=== PATIENT | female | born 1950 | race Caucasian/White ===

== ENCOUNTER 2020-03-03 16:37 | Inpatient (IN) | payer MEDICARE ==
[2020-03-03] MEDS ORDERED: Morphine 4 MG/ML VIAL ONE ×2 (17:47→19:34)
[2020-03-03] MEDS ORDERED: Ondansetron PF 4 MG/2 ML Vial ONE (17:47)
--- NOTE | 2020-03-03 18:14 | RAD ---
Radiograph left femur 2 views: 03/03/2020 5:39 PM HISTORY: 70-year-old female with acute traumatic left lower extremity pain from fall FINDINGS: Total left knee replacement arthroplasty hardware is present. There is a very comminuted fracture of the distal femoral metaphysis which involves the metallic femo ral prosthesis. There is significant displacement, which includes approximately 50-75% bone width posterior displacement and approximately 50% bone width medial displacement, of major distal fragment s, including the prosthesis itself, relative to the femoral shaft. Nondisplaced linear fracture lucency extends to the distal shaft. No fracture of the midshaft, proximal shaft, intertrochanteric r egion, or femoral head. IMPRESSION: Acute, traumatic, comminuted and significantly displaced distal femoral metaphyseal fracture which in volves displacement of the metallic femoral prosthesis hardware for total knee replacement arthroplasty
--- NOTE | 2020-03-03 18:16 | RAD ---
RADIOGRAPH CHEST 1 VIEW: Supine DATE: 03/03/2020 HISTORY: 70-year-old female status post acute chest trauma from fall FINDINGS: There is no airspace density or pulmonary edema. The lateral costophrenic angles are sharp. Supine po sitioning makes this study insensitive for the detection of pneumothorax. IMPRESSION: No acute pulmonary findings.
[2020-03-03 18:31] LABS: #Basophils 0.1 thou/uL (0.0-0.2); #Eosinphils 0.2 thou/uL (0.0-0.7); #Lymphocytes 1.4 thou/uL (1.20-3.40); #Monocytes 0.7 thou/uL (0.11-0.59); #Neutrophils 17.2 thou/uL (1.40-6.50); %Basophils 0.4 % (0.0-1.0); %Eosinophils 0.8 % (0.0-10.0); %Monocytes 3.7 % (0.0-10.0); %Neutrophils 88.1 % (42.0-75.0); Hemoglobin 13.1 g/dL (12.0-16.0); Mean Corpuscular HGB CONC 30.8 g/dL (32.0-36.0); Mean Corpuscular Hemoglobin 24.4 pg (27.0-31.0); Mean Corpuscular Volume 79.1 fL (78.0-98.0); Mean Platelet Volume 9.2 fL (7.4-10.4); Platelet Count 480 thou/uL (130-400); RBC Distribution Width 17.7 % (11.5-14.5); White Blood Cell (WBC) Count 19.5 thou/uL (4.8-10.8)
[2020-03-03 19:04] LABS: ALT (SGPT) 9 U/L (8-55); AST (SGOT) 17 U/L (5-34); Albumin 3.8 g/dL (3.4-4.8); Alkaline Phosphatase 85 U/L (40-110); Anion Gap 16 mmol/L (10-20); BUN (Urea Nitrogen) 13 mg/dL (9.8-20.1); Bilirubin, Total 0.8 mg/dL (0.2-1.2); CK (CPK) 193 U/L (29-168); Calc. Creatinine Clearance 0 mL/min (70-130); Carbon Dioxide 24 mmol/L (23-31); Chloride 103 mmol/L (98-107); Estimated GFR-MDRD 49; Globulin 3.5 g/dL (2.4-3.5); Glucose 125 mg/dL (83-110); Magnesium 1.8 mg/dL (1.6-2.6); Potassium 3.7 mmol/L (3.5-5.1); Protein, Total 7.3 g/dL (6.0-8.3); Sodium 139 mmol/L (136-145)
[2020-03-03] MEDS ORDERED: POTASSIUM CHLORIDE IVPB SCH (20:15)
[2020-03-03] MEDS ORDERED: SODIUM CHLORIDE 0.9% IVPB SCH (20:15)
[2020-03-03] MEDS ORDERED: MAGNESIUM SULFATE IVPB SCH (20:15)
[2020-03-03] MEDS ORDERED: Dextrose 5% in Water 1,000 ML IV PRN (20:38)
[2020-03-03] MEDS ORDERED: Ondansetron ODT 4 MG TAB PO PRN (20:38)
[2020-03-03] MEDS ORDERED: Dextrose 50% Abboject 50 ML SYRINGE SLOW IVP PRN (20:38)
[2020-03-03] MEDS ORDERED: Morphine 2 MG/ML VIAL SLOW IVP PRN (20:38)
[2020-03-03] MEDS ORDERED: Cyclobenzaprine 10 MG TAB PO PRN (20:48)
[2020-03-03] MEDS ORDERED: traMADol HCl 50 MG TAB PO PRN (20:48)
[2020-03-03] MEDS ORDERED: Metoprolol Tartrate 5 MG/5 ML VIAL IVP PRN (20:50)
[2020-03-03] MEDS ORDERED: hydrALAZINE 20 MG/ML VIAL SLOW IVP PRN (20:50)
--- NOTE | 2020-03-03 21:39 | RAD ---
2 views of the left knee: 03/03/2020 COMPARISON: None HISTORY: Injury, trauma, pain FINDINGS: There is a markedly comminuted distal left femur fracture extending into the femoral compon ent of a left total knee arthroplasty. The distal fracture fragment demonstrates lateral angulation and medial displacement. No evidence for dislocation IMPRESSION: Markedly comminuted displaced and angulated distal left femur fracture extending into the left femoral component. Orthopedic consultation advised.
[2020-03-04] MEDS: Ketorolac Tromethamine 30 MG/ML VIAL IVP SCH ×4 (00:18→19:06)
[2020-03-04] MEDS: Famotidine 20 MG TAB PO SCH ×3 (00:18→20:40)
[2020-03-04] MEDS: Acetaminophen 500 MG TAB PO SCH ×5 (00:19→20:41)
[2020-03-04] MEDS: Senokot S 8.6-50 MG TAB PO SCH ×3 (00:19→20:42)
[2020-03-04] MEDS: traMADol HCl 50 MG TAB PO SCH ×5 (00:19→20:41)
[2020-03-04] MEDS: Ondansetron PF 4 MG/2 ML Vial IVP PRN (00:20)
[2020-03-04 00:34] VITALS: BMI 35.9
[2020-03-04] MEDS: Lactated Ringer's 1,000 ML IV SCH ×2 (02:13→13:58)
--- NOTE | 2020-03-04 02:13 | HP ---
TRAUMA ACTIVATION: Not applicable. HISTORY OF PRESENT ILLNESS: This is a 70-year-old female, who presented to [facility] via EMS status post fall. Per patient, she was walking around in her house when she tripped and fell over a vacuum cord. Patient reports landing on her knees. There was no head trauma. There was no loss of consciousness. Patient was seen and evaluated in the emergency room and found to have a left periprosthetic distal femur fracture. Orthopedic Surgery was notified and Trauma Service is asked to admit. Incidentally, patient was found to be in atrial fibrillation which she did not have a history of. Upon my evaluation, the patient reports pain is tolerable. She does endorse a 2-year history of unexplained cough, which has been treated one time via antibiotics with no resolution or change in symptoms. Cough is described as consistent and productive with thick white sputum. She also endorses shortness of breath at rest and dyspnea on exertion. These symptoms resolve with deep breathing exercises. Denies chest pain, fevers, chills, nausea, vomiting, palpitations, orthopnea, PND, or lower extremity edema. ALLERGIES: PATIENT DENIES. PAST MEDICAL HISTORY: Chronic illnesses include hypothyroidism, hypertension, and GERD. HOME MEDICATIONS: Include 1. Synthroid. 2. Hydrochlorothiazide. 3. Famotidine p.r.n. SURGICAL HISTORY: Bilateral knee replacement, two gastroplasties, appendectomy, thyroidectomy, hernia repair, and LASIK. SOCIAL HISTORY: Patient is , [place]. Endorses very rare alcohol use. She is a never smoker. Denies illicit drug use. FAMILY HISTORY: Noncontributory. REVIEW OF SYSTEMS: Remainder of a 10-point review of systems was performed and negative, except as indicated in HPI. PHYSICAL EXAMINATION: VITAL SIGNS: On evaluation include heart rate 98, blood pressure 156/93, respiratory rate of 18, O2 saturation of 98% on room air, and temperature 98.5. GENERAL: Elderly-appearing female, in no acute distress, resting on stretcher. HEENT: Head is normocephalic and atraumatic. Eyes, pupils are PERRL. Extraocular movements are intact. NECK: Supple. Trachea is midline. There is no midline tenderness to palpation. CHEST: Atraumatic. Nontender to palpation. Normal work of breathing. Symmetric rise. LUNGS: Clear to auscultation bilaterally. CARDIOVASCULAR: Irregularly irregular. No obvious murmurs, rubs, or gallops. No lower extremity edema. EXTREMITIES: Appear well perfused. ABDOMEN: Soft, nontender, and nondistended. MUSCULOSKELETAL: Moves all extremities. Bilateral upper extremities within normal limits. Right lower extremity within normal limits. Left lower extremity in knee immobilizer with obvious swelling and range of motion and strength limited secondary to pain. NEUROLOGIC: GCS is 15. No focal deficit is noted. LABORATORY FINDINGS: WBC 19.5, hemoglobin 13.1, hematocrit 42.7, and platelet count 480. Sodium 139, potassium 3.7, chloride 103, carbon dioxide 24, BUN 13, creatinine 1.10, and glucose 125. AST and ALT within normal limits. Magnesium 1.8. Troponin is less than 0.010. CK 193. TSH was 3.4997. EKG, atrial fibrillation, rapid ventricular rate. RADIOGRAPHIC FINDINGS: X-ray of the chest was negative for acute cardiopulmonary process. Femur x-ray demonstrated distal periprosthetic femur fracture. X-ray of the knee demonstrated the same. ASSESSMENT: 1. Status post mechanical fall. 2. Acute traumatic pain. 3. Left distal periprosthetic femur fracture. 4. Atrial fibrillation with rapid ventricular response, new diagnosis. 5. History of hypertension. 6. History of hypothyroidism. PLAN: Admit to Trauma Services. Admit patient to telemetry for further monitoring. In regard to her atrial fibrillation, the rate appears to be relatively well controlled with heart rate consistently dropping below 100 and only occasionally rising over 100 with exertion or movement. P.r.n. beta-epifanio. Cardiology consult. Replete abnormal electrolytes. Echocardiogram for further evaluation. Because the patient has been in AFib for unknown duration, we will not prescribe antiarrhythmics at this time. Orthopedic Surgery has seen and evaluated the patient. They planned for operative intervention once cleared by Cardiology. Patient should be n.p.o. after midnight. Pain management with p.o. and IV analgesics. Postoperative PT and OT. Supportive care as needed. Plan for admission was discussed with the patient at bedside and all questions were answered prior to this dictation. Trauma attending has been notified of admission. Job ID: [id number]
[2020-03-04 03:13] LABS: SARS-CoV-2 MS2 Positive; SARS-CoV-2 N Gene Negative; SARS-CoV-2 S Gene Negative; SARS-CoV-2 by NAA Not Detected (NotDetected); SARS-CoV-2 orf1ab Negative
[2020-03-04 05:12] LABS: #Eosinphils 0.1 thou/uL (0.0-0.7); #Monocytes 0.7 thou/uL (0.11-0.59); #Neutrophils 8.9 thou/uL (1.40-6.50); %Basophils 0.3 % (0.0-1.0); %Eosinophils 1.1 % (0.0-10.0); %Lymphocytes 17.3 % (21.0-51.0); %Monocytes 6.1 % (0.0-10.0); %Neutrophils 75.2 % (42.0-75.0); Hemoglobin 10.7 g/dL (12.0-16.0); Mean Corpuscular HGB CONC 30.6 g/dL (32.0-36.0); Mean Corpuscular Hemoglobin 24.2 pg (27.0-31.0); Mean Corpuscular Volume 79.1 fL (78.0-98.0); Mean Platelet Volume 9.3 fL (7.4-10.4); Platelet Count 428 thou/uL (130-400); RBC Distribution Width 17.7 % (11.5-14.5); Red Blood Cell (RBC) Count 4.42 mill/uL (4.20-5.40); White Blood Cell (WBC) Count 11.8 thou/uL (4.8-10.8)
[2020-03-04 05:26] LABS: Phosphorus 4.4 mg/dL (2.3-4.7)
[2020-03-04 05:38] LABS: Anion Gap 13 mmol/L (10-20); BUN (Urea Nitrogen) 14 mg/dL (9.8-20.1); Calc. Creatinine Clearance 84 mL/min (70-130); Calcium 8.4 mg/dL (7.8-10.44); Carbon Dioxide 24 mmol/L (23-31); Chloride 105 mmol/L (98-107); Estimated GFR-MDRD 55; Glucose 123 mg/dL (83-110); Magnesium 2.5 mg/dL (1.6-2.6); Potassium 4.3 mmol/L (3.5-5.1); Sodium 138 mmol/L (136-145)
--- NOTE | 2020-03-04 08:35 | CON ---
DATE OF CONSULTATION: 03/04/2020 CHIEF COMPLAINT: Leg pain. HISTORY OF PRESENT ILLNESS: Ms. Parra is a 70-year-old female, who has fallen and injured her left leg. She was at home yesterday when she lost her balance. She has a history of knee arthroplasty. She reports falling periodically, but has never fractured her bone before. This time, she could not get up. She had severe pain. She required EMS to transfer her to the hospital. She was also found to be in atrial fibrillation. Upon arrival to the emergency department, she was found to have a distal femur fracture, periprosthetic. She has been admitted to the telemetry unit. She is undergoing workup for her atrial fibrillation. She is in a knee immobilizer at this point. PAST MEDICAL HISTORY: Includes hypothyroidism, hypertension, GERD, and new onset atrial fibrillation. MEDICATIONS: 1. Synthroid. 2. Hydrochlorothiazide. 3. Famotidine. SURGICAL HISTORY: Bilateral total knee arthroplasties, previous appendectomy, thyroidectomy, hernia repair, LASIK surgery, and gastroplasty. SOCIAL HISTORY: The patient lives alone. She denies tobacco, alcohol, or drug use. FAMILY MEDICAL HISTORY: Noncontributory. REVIEW OF SYSTEMS: Positive for left leg pain. Otherwise, negative 10-point review of systems. IMAGES: Left femur x-rays demonstrate a periprosthetic distal femur fracture. There is severely osteoporotic bone. Total knee arthroplasty appears to be intact. There is approximately 1 to 2 cm of distal bone attached to the knee arthroplasty. There is a high degree of comminution. PHYSICAL EXAMINATION: VITAL SIGNS: Temperature is 97.6, pulse is 80, respiratory rate is 16, oxygen saturation 98%, blood pressure is 113/66. GENERAL: She is alert and oriented, in no apparent distress. RESPIRATORY: Breathing comfortably. HEENT: Normocephalic and atraumatic. MUSCULOSKELETAL: The patient's left lower extremity is in a knee immobilizer. She does have some swelling and ecchymosis about her knee. Otherwise, skin is intact. She is able to flex and extend the foot and ankle. She has a palpable dorsalis pedis pulse. IMPRESSION: Left distal femur fracture, periprosthetic in a patient with new onset atrial fibrillation. PLAN: The patient will need to go to the operating room. I will take her for open reduction and internal fixation of the left femur when she is cleared from a cardiac standpoint. She is awaiting an echocardiogram as well as Cardiac consultation. Hopefully, we can proceed with surgery today to get her femur stabilized and allow her to begin her recovery. She will have pain control. She will be n.p.o. for now. She will have DVT prophylaxis. We will continue to follow closely. Job ID: [id number]
[2020-03-04] MEDS ORDERED: FLU VACC QS2020-21(65YR UP)/PF 240 MCG/0.7 ML SYRINGE IM ONE (09:00)
[2020-03-04] MEDS ORDERED: Lidocaine 1% PF 5 ML VIAL ONE (09:59)
[2020-03-04] MEDS ORDERED: Metoclopramide HCl 10 MG/2 ML VIAL ONE (09:59)
[2020-03-04] MEDS ORDERED: Ketorolac Tromethamine 30 MG/ML VIAL ONE (09:59)
[2020-03-04] MEDS ORDERED: Dexamethasone 20 MG/5 ML VIAL ONE (09:59)
[2020-03-04] MEDS ORDERED: Ondansetron PF 4 MG/2 ML Vial ONE ×2 (09:59→16:52)
[2020-03-04] MEDS ORDERED: PROPOFOL 200 MG/20 ML VIAL ONE (09:59)
[2020-03-04] MEDS: Polyethylene Glycol 3350 17 GM Packet PO SCH (10:25)
--- NOTE | 2020-03-04 12:05 | CON ---
DATE OF CONSULTATION: HISTORY: Elo is a 70-year-old white female with bilateral knee replacements, who tripped over a vacuum hand rug cleaner cord at home and has sustained a left distal periprosthetic femur fracture. She was found to be in atrial fibrillation, which is a new finding for her. She is not on any rate-controlling drugs, but her rate has not been documented to be excessively fast here. She does state that she has noticed over the last several months (although maybe it is years) that she has dyspnea on exertion with doing housework or walking around the house. She denies ever having any palpitations. She denies any chest, arm, neck, or jaw discomfort. If she sits and rests, the dyspnea will resolve in several minutes. She denies any PND, orthopnea, or leg edema. PAST MEDICAL HISTORY: Hypertension, hypothyroidism, GERD. MEDICATIONS: 1. Hydrochlorothiazide 25 daily. 2. Prevacid 30 p.r.n. 3. Levothyroxine 175 mcg daily. ALLERGIES: NONE. OPERATIONS: Bilateral knee replacements, 2 gastroplasties, appendectomy, hernia repair, LASIK. She also had Graves disease many years ago and underwent I-131 ablation. SOCIAL HISTORY: She does not smoke. She rarely drinks alcohol. FAMILY HISTORY: Mother and father had myocardial infarctions. REVIEW OF SYSTEMS: A 10-point review of systems is otherwise unremarkable. PHYSICAL EXAMINATION: VITAL SIGNS: Blood pressure 113/66, pulse of 80 and irregularly irregular. HEENT: PERRL. NECK: Supple. CHEST: Clear. CARDIAC: S1 and S2 normal without any S3, S4, or murmurs. Carotid upstrokes normal without bruits. ABDOMEN: Normal bowel sounds without tenderness or organomegaly. Abdomen is obese. EXTREMITIES: Reveal no clubbing, cyanosis, or edema. NEUROLOGIC: Grossly intact. LABORATORY DATA: EKG revealed atrial fibrillation with rate of 95 per minute and poor R wave progression, possible septal infarction. Echocardiogram revealed ejection fraction of 35% to 40% with moderate left atrial enlargement, jrqiczzj-rj-wppwqy mitral regurgitation, aortic valvular sclerosis, moderate aortic regurgitation, xzhl-yi-pojaijfy tricuspid regurgitation, mild pulmonic regurgitation. Sodium 138, potassium 4.3, chloride 105, carbon dioxide 24, BUN 14, creatinine 0.99. Troponin I less than 0.010. TSH is normal. Hemoglobin was 13.1 on admission, but has dropped to 10.7; hematocrit 35.0; white count 11,800; platelets 428,000. COVID negative. IMPRESSION: 1. Left distal femur fracture after a fall. She states that she does not have falls except for this one. 2. Atrial fibrillation of uncertain duration. 3. Moderate left ventricular dysfunction with ejection fraction of 35% to 40%. 4. Etgfrijl-mm-zzjnjj mitral regurgitation. 5. Exertional dyspnea. 6. Hypertension. 7. Hypothyroidism. 8. Obesity. PLAN: Ms. Parra is at moderate cardiac risk with left ventricular dysfunction. However, her distal femur fracture needs to be repaired and I feel it will be prudent to proceed on. Her volume status will need to be watched very closely. Also, if she develops rapid ventricular response, she may need to be treated with intravenous Cardizem. I did discuss with her eventuality of the need for anticoagulation for stroke prophylaxis and medication such as Amiodarone and ultimate consideration of cardioversion. However, these are issues that will need to be pursued in the future and not now. Job ID: [id number] MANDO
[2020-03-04] MEDS ORDERED: Fentanyl 100 MCG/2 ML VIAL ONE ×3 (14:17→16:24)
[2020-03-04] MEDS ORDERED: CEFAZOLIN 2 GM in Premix Bag 1 BAG IVPB SCH (15:00)
[2020-03-04] MEDS ORDERED: Ondansetron HCl/PF 4 MG/2 ML Vial IVP PRN (15:54)
[2020-03-04] MEDS ORDERED: Promethazine HCl 25 MG/ML VIAL SLOW IVP PRN (15:54)
[2020-03-04] MEDS ORDERED: Promethazine HCl 25 MG/ML VIAL IM PRN (15:54)
--- NOTE | 2020-03-04 18:55 | RAD ---
Intraoperative imaging of the left femur: 03/04/2020 HISTORY: Injury, trauma, pain FINDINGS: There is a knee arthroplasty. Previously noted comminuted fracture of the distal femur has been treated with a lateral screw and plate fixation. There is anatomic alignment at the fracture site. IMPRESSION: ORIF of the distal left femur as above.
--- NOTE | 2020-03-04 19:00 | PRG ---
DATE OF SERVICE: 03/04/2020 SUBJECTIVE: The patient is currently on the telemetry unit. She was admitted status post ground-level fall when she sustained a periprosthetic distal femur fracture. She was awaiting surgery, but due to her new-onset atrial fibrillation, she required cardiac clearance. Dr. White evaluated her this morning and gave clearance for her surgery and we will continue treatment of her new onset of atrial fibrillation. She has been non-tachycardic since her admission. The current plans are for her to undergo surgery today with Dr. aDly. PHYSICAL EXAMINATION: VITAL SIGNS: Temperature is 97.6, heart rate 80, blood pressure 113/66, respirations 16, and oxygen saturation 98% on room air. GENERAL: The patient is resting comfortably in bed. She is awake, alert, conversant, and appropriate. [place] Coma Scale is 15. HEENT: Unremarkable. LUNGS: Clear to auscultation with good inspiratory and expiratory effort. HEART: Irregularly irregular consistent with her atrial fibrillation. She is not tachycardic. EXTREMITIES: Neurovascularly intact with tenderness to palpation to her left knee consistent with her fracture. LABORATORY FINDINGS: White blood cell count 11.8, hemoglobin 10.7, hematocrit 35.0, platelets 428. Sodium 138, potassium 4.3, chloride 105, CO2 of 24, BUN 14, creatinine 0.99, glucose 123, magnesium 2.5, phosphorus 4.4. There are no radiographs to review this morning. ASSESSMENT AND PLAN: 1. Status post ground-level fall. 2. Left distal periprosthetic femur fracture. 3. Acute pain secondary to above. 4. New-onset atrial fibrillation. 5. History of hypertension, hypothyroidism. Plan will be to have the patient begin physical and occupational therapy after surgery, discuss placement and await final treatment plan from Cardiology regarding her atrial fibrillation. The patient was evaluated this morning with Dr. Krueger during rounds. Job ID: [id number]
--- NOTE | 2020-03-04 19:26 | OP ---
DATE OF PROCEDURE: 03/04/2020 OPERATION: Open reduction and internal fixation of left distal femur fracture. PREOPERATIVE DIAGNOSIS: Left comminuted and displaced distal femur fracture. POSTOPERATIVE DIAGNOSIS: Left comminuted and displaced distal femur fracture. COMPLICATIONS: None. ESTIMATED BLOOD LOSS: 150 mL. IMPLANTS: Synthes distal femoral locking plate, size 14-hole. INDICATIONS: Ms. Parra is a 70-year-old female, who has fallen and fractured her distal femur. She has a periprosthetic fracture near the total knee arthroplasty. She has been indicated now for open reduction and internal fixation to restore anatomic alignment and promote healing. Goal of surgery is to prevent prolonged bedrest and allow pain control. Risks have been reviewed. She has elected to proceed with the operation. DESCRIPTION OF PROCEDURE: Ms. Parra was identified in the preoperative holding area. The correct extremity was marked. She was carried to the operating room. She was positioned supine. General anesthesia was induced. A multidisciplinary time-out was performed. The left lower extremity was prepped and draped in sterile fashion. We began the procedure with a lateral approach to the distal femur. We dissected down through the subcutaneous tissues to the fascia, which was opened. We exposed the distal femur with the comminuted fracture. We pulled the length on the bone and reduced the bone back into its anatomic position. At this point, we placed multiple K-wires. We then placed a 14-hole plate from distal to proximal. We slid the plate along the cortex of the bone. We then placed a proximal screw followed by distal locking screws. At this point, we placed multiple screws under intraoperative guidance. We continuously evaluated the fracture and hardware placement with intraoperative x-ray. Once we had a full construct with all screws placed, we took final images. We took images in the lateral view as well. We thoroughly irrigated with copious lavage. We then closed in layers. A sterile dressing was applied. The patient was taken to the recovery room in good condition at this point without complication. The dental assistant teacher surgeon was responsible for positioning the patient, preparing the injured extremity, applying the tourniquet, and assisting in preparation for surgery. The dental assistant teacher was instrumental in reducing the injured limb by applying traction and reduction maneuvers as well as holding retractors and reduction tools. The dental assistant teacher also was instrumental in assisting in exposure throughout the operation using appropriate retractors. The dental assistant teacher participated in closure of the operative site as well as dressing application and splint application. Job ID: [id number]
[2020-03-04] MEDS: Ibuprofen 600 MG TAB PO SCH (20:40)
[2020-03-04] MEDS: CEFAZOLIN 2 GM in Premix Bag 1 BAG IVPB SCH (20:43)
[2020-03-05] MEDS: Lactated Ringer's 1,000 ML IV SCH ×2 (02:13→15:41)
[2020-03-05 05:21] LABS: Cardiac Risk 2.7 (Less than 4.5)
[2020-03-05] MEDS: CEFAZOLIN 2 GM in Premix Bag 1 BAG IVPB SCH (06:01)
[2020-03-05] MEDS: Ibuprofen 600 MG TAB PO SCH ×3 (06:02→21:50)
[2020-03-05] MEDS: Acetaminophen 500 MG TAB PO SCH ×4 (06:36→20:31)
[2020-03-05] MEDS: traMADol HCl 50 MG TAB PO SCH ×4 (06:36→20:32)
[2020-03-05] MEDS: Polyethylene Glycol 3350 17 GM Packet PO SCH (08:27)
[2020-03-05] MEDS: Senokot S 8.6-50 MG TAB PO SCH ×2 (08:27→20:30)
[2020-03-05] MEDS: Famotidine 20 MG TAB PO SCH ×2 (08:27→20:30)
[2020-03-05] MEDS: Carvedilol 3.125 MG TAB PO SCH (17:17)
--- NOTE | 2020-03-05 22:41 | PRG ---
DATE OF SERVICE: SUBJECTIVE: Patient is currently on the telemetry floor. She was admitted status post ground level fall, in which she sustained a left comminuted distal femur fracture. She has undergone open reduction internal fixation. She is postop day 1 from that. She tolerated that procedure well. She began working with Physical and Occupational Therapy today. Regarding her atrial fibrillation, she remains in atrial fibrillation. She is currently rate controlled and Dr. White is making adjustments to her cardiac medications and recommendations for anticoagulation therapy. She is tolerating a diet. Her pain is controlled. PHYSICAL EXAMINATION: VITAL SIGNS: Temperature is 98.8, heart rate 92, blood pressure 118/58, respirations 16, and oxygen saturation 98% on room air. GENERAL: The patient is resting comfortably in bed. She is awake, alert, conversant, and appropriate. [place] Coma Scale is 15. HEENT: Unremarkable. LUNGS: Clear to auscultation bilaterally. HEART: Irregularly irregular consistent with her atrial fibrillation. ABDOMEN: Soft and nondistended with active bowel sounds. EXTREMITIES: Neurovascularly intact x4. LABORATORY FINDINGS: BNP 300. IMAGING: There are no radiographs reviewed this morning. ASSESSMENT: 1. Status post ground level fall. 2. Status post open reduction internal fixation of left distal periprosthetic femur fracture. 3. New onset atrial fibrillation, currently rate controlled. 4. History of hypertension and hypothyroidism. PLAN: Will be to continue encouraging physical and occupational therapy, begin working on placement and when cleared from cardiology standpoint to leave the hospital, we will transfer to [facility] facility versus rehab. At the time of dictation, Case Management is working on getting the patient placed closer to her daughter's home and her place of work at [employer]. We will continue working on this. Patient reports that this is a swing bed facility so this may facilitate her transfer. Job ID: [id number]
[2020-03-06] MEDS: traMADol HCl 50 MG TAB PO SCH ×4 (04:20→22:05)
[2020-03-06] MEDS: Acetaminophen 500 MG TAB PO SCH ×4 (04:21→22:00)
[2020-03-06 04:35] LABS: #Basophils 0.1 thou/uL (0.0-0.2); #Eosinphils 0.3 thou/uL (0.0-0.7); #Lymphocytes 3.7 thou/uL (1.20-3.40); #Monocytes 0.9 thou/uL (0.11-0.59); #Neutrophils 8.3 thou/uL (1.40-6.50); %Basophils 0.8 % (0.0-1.0); %Eosinophils 2.1 % (0.0-10.0); %Lymphocytes 27.7 % (21.0-51.0); %Monocytes 6.7 % (0.0-10.0); %Neutrophils 62.8 % (42.0-75.0); Hemoglobin 8.8 g/dL (12.0-16.0); Mean Corpuscular HGB CONC 31.1 g/dL (32.0-36.0); Mean Corpuscular Hemoglobin 24.5 pg (27.0-31.0); Mean Corpuscular Volume 78.9 fL (78.0-98.0); Mean Platelet Volume 9.3 fL (7.4-10.4); Platelet Count 381 thou/uL (130-400); RBC Distribution Width 17.6 % (11.5-14.5); White Blood Cell (WBC) Count 13.2 thou/uL (4.8-10.8)
[2020-03-06 05:03] LABS: Anion Gap 12 mmol/L (10-20); BUN (Urea Nitrogen) 21 mg/dL (9.8-20.1); Calc. Creatinine Clearance 64 mL/min (70-130); Calcium 8.3 mg/dL (7.8-10.44); Carbon Dioxide 25 mmol/L (23-31); Chloride 106 mmol/L (98-107); Estimated GFR-MDRD 40; Glucose 95 mg/dL (83-110); Magnesium 2.2 mg/dL (1.6-2.6); Phosphorus 3.3 mg/dL (2.3-4.7); Potassium 4.7 mmol/L (3.5-5.1); Sodium 138 mmol/L (136-145)
[2020-03-06] MEDS: Ibuprofen 600 MG TAB PO SCH ×3 (07:07→21:59)
[2020-03-06] MEDS: Levothyroxine 175 MCG TAB PO SCH (07:08)
[2020-03-06] MEDS: Famotidine 20 MG TAB PO SCH ×2 (07:48→21:59)
[2020-03-06] MEDS: Carvedilol 3.125 MG TAB PO SCH ×2 (07:48→17:05)
[2020-03-06] MEDS: Senokot S 8.6-50 MG TAB PO SCH ×2 (07:48→21:59)
[2020-03-06] MEDS: Polyethylene Glycol 3350 17 GM Packet PO SCH (07:49)
[2020-03-06] MEDS: Furosemide 20 MG TAB PO SCH (07:49)
[2020-03-06] MEDS ORDERED: Hydrochlorothiazide 25 MG TAB PO SCH (09:00)
--- NOTE | 2020-03-06 09:08 | PRG ---
DATE OF SERVICE: 03/06/2020 SUBJECTIVE: Elo is a 70-year-old female, postop day 2 from a left periprosthetic distal femur fracture. She is in good spirits and she was able to ambulate about 8 to 10 feet yesterday. Otherwise, she has no complaints of pain. She is very comfortable. OBJECTIVE: VITAL SIGNS: Temperature 97.7, pulse 78, respiratory rate 16, and blood pressure 117/66. GENERAL: She is alert and oriented to person, place, time, situation, responsive, and appropriate with examiner. Her incision is clean. There is no strike through and she is neurovascularly intact in the left lower extremity. No malrotation or shortening. LABORATORY DATA: Hemoglobin and hematocrit 8.8 and 28.4. BUN is little elevated at 21 with a creatinine of 1.30. IMPRESSION: 1. A 70-year-old female, postop day 2, left distal femur periprosthetic open reduction and internal fixation, doing relatively well. 2. Asymptomatic hemorrhagic anemia. 3. Mild renal insufficiency. PLAN: Continue to follow. Defer medical management to Trauma team. Otherwise, will take her dressing down in another 24 to 48 hours for incision check. I think she is planning on being transferred to a skilled facility near [place]. Job ID: [id number]
[2020-03-06 18:39] LABS: Hemoglobin 9.5 g/dL (12.0-16.0); Platelet Count 431 thou/uL (130-400)
--- NOTE | 2020-03-06 20:48 | PRG ---
DATE OF SERVICE: 03/06/2020 SUBJECTIVE: The patient is currently on the telemetry floor. She is status post ground level fall, in which she sustained a left distal femur periprosthetic fracture. She is postop day 2, status post open reduction and internal fixation of this fracture. She tolerated that well. She has been rate controlled on her in regard to her atrial fibrillation. She is tolerating a diet. Her pain is controlled. Case Management is working on placement for her. OBJECTIVE: VITAL SIGNS: Temperature 97.2, heart rate 84, blood pressure 111/64, respirations 18, oxygen saturation is 96% on room air. GENERAL: The patient is resting comfortably in bed. She is awake, alert, and appropriate. [place] Coma Scale is 15. HEENT: Unremarkable. LUNGS: Clear to auscultation. HEART: Irregularly irregular consistent with her atrial fibrillation. ABDOMEN: Nontender with active bowel sounds. EXTREMITIES: Neurovascularly intact x4. Postop dressing is clean, dry, and intact. Of note, this was changed this morning by Orthopedics. LABORATORY FINDINGS: White blood cell count 13.2, hemoglobin 8.8, hematocrit 28.4, platelets 381. Sodium 138, potassium 4.7, chloride 106, CO2 of 25, BUN 21, creatinine 1.30, glucose 95, phosphorus 3.3, magnesium 2.2. There are no radiographs reviewed this morning. ASSESSMENT: 1. Status post ground level fall, hospital day 3. 2. Postop day 2, status post left distal femur periprosthetic open reduction and internal fixation. 3. Acute blood loss anemia, stable. 4. Atrial fibrillation, currently rate controlled. PLAN: Will be to continue encouraging physical and occupational therapy. Await placement decision. Medical management by Cardiology and discuss with them timing for discharge and anticoagulation. The patient has been started on Eliquis. Plan will be to continue awaiting placement decision. Job ID: [id number]
[2020-03-07] MEDS: Acetaminophen 500 MG TAB PO SCH ×4 (03:46→21:17)
[2020-03-07] MEDS: traMADol HCl 50 MG TAB PO SCH ×4 (03:47→21:14)
[2020-03-07 04:47] LABS: #Basophils 0.1 thou/uL (0.0-0.2); #Eosinphils 0.7 thou/uL (0.0-0.7); #Lymphocytes 4.7 thou/uL (1.20-3.40); #Monocytes 0.8 thou/uL (0.11-0.59); #Neutrophils 5.9 thou/uL (1.40-6.50); %Eosinophils 5.8 % (0.0-10.0); %Lymphocytes 38.8 % (21.0-51.0); %Monocytes 6.6 % (0.0-10.0); %Neutrophils 47.8 % (42.0-75.0); Hemoglobin 9.9 g/dL (12.0-16.0); Mean Corpuscular HGB CONC 30.1 g/dL (32.0-36.0); Mean Corpuscular Hemoglobin 24.3 pg (27.0-31.0); Mean Corpuscular Volume 80.8 fL (78.0-98.0); Mean Platelet Volume 9.3 fL (7.4-10.4); Platelet Count 422 thou/uL (130-400); RBC Distribution Width 18.1 % (11.5-14.5); Red Blood Cell (RBC) Count 4.08 mill/uL (4.20-5.40); White Blood Cell (WBC) Count 12.2 thou/uL (4.8-10.8)
[2020-03-07 05:23] LABS: Anion Gap 15 mmol/L (10-20); BUN (Urea Nitrogen) 23 mg/dL (9.8-20.1); Calc. Creatinine Clearance 73 mL/min (70-130); Calcium 8.6 mg/dL (7.8-10.44); Carbon Dioxide 24 mmol/L (23-31); Chloride 103 mmol/L (98-107); Estimated GFR-MDRD 45; Glucose 79 mg/dL (83-110); Magnesium 2.2 mg/dL (1.6-2.6); Phosphorus 4.3 mg/dL (2.3-4.7); Potassium 4.6 mmol/L (3.5-5.1); Sodium 137 mmol/L (136-145)
[2020-03-07] MEDS: Ibuprofen 600 MG TAB PO SCH ×3 (05:39→21:16)
[2020-03-07] MEDS: Levothyroxine 175 MCG TAB PO SCH (05:41)
[2020-03-07] MEDS: Ascorbic Acid 500 mg Chewable Tablet PO SCH (09:13)
[2020-03-07] MEDS: Senokot S 8.6-50 MG TAB PO SCH ×2 (09:13→21:19)
[2020-03-07] MEDS: Carvedilol 3.125 MG TAB PO SCH ×2 (09:14→17:23)
[2020-03-07] MEDS: Furosemide 20 MG TAB PO SCH (09:14)
[2020-03-07] MEDS: Polyethylene Glycol 3350 17 GM Packet PO SCH (09:14)
[2020-03-07] MEDS: Ferrous Sulfate 325 MG TAB PO SCH ×2 (09:14→17:23)
[2020-03-07] MEDS: Famotidine 20 MG TAB PO SCH ×2 (09:19→21:18)
[2020-03-07] MEDS: Ondansetron PF 4 MG/2 ML Vial IVP PRN (11:04)
--- NOTE | 2020-03-07 17:24 | PDOC.CPN ---
- Subjective Date: 03/07/20 Time: 15:45 Interval history: No overnight events, patient remains in a-fib, had one episode of A-fib with RVR this morning, patient was vomiting at that time, only lasted a short period. Patient denies any SOB, palpitations, states her left leg pain is 0/10 today. - Review of Systems General: denies: fever/chills, weight/appetite/sleep changes, night sweats, fatigue Respiratory: denies: cough, congestion, shortness of breath, exercise intolerance Cardiovascular: denies: chest pain, palpitation, edema, paroxysmal nocturnal dyspnea, orthopnea Gastrointestinal: denies: nausea, vomiting (vomiting this morning, denies any more vomiting or nausea today.), diarrhea, constipation, abd pain, GI bleeding Musculoskeletal: denies: pain, tenderness, stiffness, swelling, arthritis/arthralgias Neurological: denies: numbness, syncope, seizure, weakness - Objective Allergies/Adverse Reactions: Allergies Allergy/AdvReac Type Severity Reaction Status Date / Time No Known Drug Allergies Allergy Verified 03/08/14 13:03 Visit Medications: Current Medications Acetaminophen (Acetaminophen 500 Mg Tab) 1,000 mg PO Q6H [facility] Last Admin: 03/07/20 15:58 Dose: 1,000 mg Documented by: Apixaban (Apixaban 5 Mg Tab) 5 mg PO BID [facility] Ascorbic Acid (Ascorbic Acid 500 Mg Chewable Tablet) 500 mg PO DAILY [facility] Last Admin: 03/07/20 09:13 Dose: 500 mg Documented by: Carvedilol (Carvedilol 3.125 Mg Tab) 3.125 mg PO BID-[facility] Last Admin: 03/07/20 09:14 Dose: 3.125 mg Documented by: Cyclobenzaprine HCl (Cyclobenzaprine 10 Mg Tab) 5 mg PO TID PRN PRN Reason: Muscle Spasm Dextrose/Water (Dextrose 50% Abboject 50 Ml Syringe) 25 gm SLOW IVP PRN PRN PRN Reason: Hypoglycemia Famotidine (Famotidine 20 Mg Tab) 20 mg PO BID [facility] Last Admin: 03/07/20 09:19 Dose: 20 mg Documented by: Ferrous Sulfate (Ferrous Sulfate 325 Mg Tab) 325 mg PO BID-[facility] Last Admin: 03/07/20 09:14 Dose: 325 mg Documented by: Furosemide (Furosemide 20 Mg Tab) 20 mg PO DAILY [facility] Last Admin: 03/07/20 09:14 Dose: 20 mg Documented by: Glucagon (Glucagon 1 Mg/Ml Vial) 1 mg IM PRN PRN PRN Reason: Hypoglycemia Hydralazine HCl (Hydralazine 20 Mg/Ml Vial) 10 mg SLOW IVP Q4H PRN PRN Reason: SBP >160 Dextrose/Water (D5w) 1,000 mls @ 0 mls/hr IV .Q0M PRN PRN Reason: Hypoglycemia Ibuprofen (Ibuprofen 600 Mg Tab) 600 mg PO Q8HR [facility] Last Admin: 03/07/20 15:53 Dose: 600 mg Documented by: Levothyroxine Sodium (Levothyroxine 175 Mcg Tab) 175 mcg PO 0600 [facility] Last Admin: 03/07/20 05:41 Dose: 175 mcg Documented by: Metoprolol Tartrate (Metoprolol Tartrate 5 Mg/5 Ml Vial) 5 mg IVP Q6H PRN PRN Reason: HR >120 Ondansetron HCl (Ondansetron Pf 4 Mg/2 Ml Vial) 4 mg IVP Q6H PRN PRN Reason: Nausea Last Admin: 03/07/20 11:04 Dose: 4 mg Documented by: Ondansetron HCl (Ondansetron Odt 4 Mg Tab) 4 mg PO Q6H PRN PRN Reason: Nausea/Vomiting Polyethylene Glycol (Polyethylene Glycol 3350 17 Gm Packet) 17 gm PO DAILY [facility] Last Admin: 03/07/20 09:14 Dose: 17 gm Documented by: Senna/Docusate Sodium (Senokot S 8.6-50 Mg Tab) 2 tab PO BID [facility] Last Admin: 03/07/20 09:13 Dose: 2 tab Documented by: Sodium Chloride (Flush - Normal Saline 10 Ml Syringe) 10 ml IVF PRN PRN PRN Reason: Saline Flush Last Admin: 03/07/20 11:05 Dose: 10 ml Documented by: Tramadol HCl (Tramadol Hcl 50 Mg Tab) 50 mg PO Q6H [facility] Last Admin: 03/07/20 15:53 Dose: 50 mg Documented by: Tramadol HCl (Tramadol Hcl 50 Mg Tab) 50 mg PO Q6H PRN PRN Reason: Breakthrough Pain Vital Signs & Weight: Vital Signs Temp Pulse Resp BP BP Pulse Ox 03/07/20 16:00 97.2 F L 87 16 124/82 124/82 03/07/20 12:00 97.2 F L 90 16 127/73 127/73 03/07/20 08:00 96.2 F L 69 18 123/62 98 03/07/20 07:45 98 Weight 237 lb 8 oz - Quality Measures Condition: Atrial Fibrillation/Flutter (hx or current) CV meds: Beta Salvador: Yes, Anticoagulant: Yes (starting Eliquis today ) - Physical Exam General: alert & oriented x3, appears well, no apparent distress HEENT: mucus membranes moist Neck: supple neck, midline trachea, no JVD/HJR Cardiac: irregularly regular Lungs: clear to auscultation, normal breath sounds, no wheeze, rales, rhonchi Neuro: grossly intact Abdomen: active bowel sounds, soft, non-tender Extremities: no cyanosis, no clubbing, no edema, 2+ Posterior Tibial, 2+ Dorsalis Pedus, other: (KRISTINA wrapand knee immobilizer to left leg, elevated on pillows) Skin: clear Musculoskeletal: normal range of motion, no pain - Labs Result Diagrams: 03/07/20 04:16 03/07/20 04:16 Troponin/CKMB Troponin I Less than 0.010 ng/mL (< 0.028) 03/03/20 18:16 - EKG Interpretation EKG Method: Telemetry EKG shows: atrial fibrillation - Assessment/Plan Assessment/Plan: 1. S/P left femur fracture, doing well after surgery, patient denies any pain in left leg today. 2. Atrial fibrillation of uncertain duration, patient has had 2 short episodes of A-fib with RVR today, BP is well controlled, we will increase her Coreg to 6.25 mg PO BID, will consider starting Amiodarone at a later time after being on OAC . At this time considering early cardioversion after RON to rule out GINA thrombus. 3. Moderate left ventricular dysfunction with EF 35-40%, will start patient on low dose Lisinopril 2.5 mg PO daily and check kidney function in A.M. 4. Moderate to severe mitral regurgitation, patient denies any SOB, SEBASTIAN, edema to BLE 5. Exertional dyspnea: patient was found to be in atrial fibrilation upon arrival to hospital, patient states her SEBASTIAN has gotten better during hospital stay 6. Hypothyroidism 7. Obesity Pt. seen and eval. by me. I agree with the A/P by the HOOP COILER. Chest clrear. Irreg/irreg. rhythm. Rate controlled. No edema. eviem
--- NOTE | 2020-03-07 19:53 | PRG ---
DATE OF SERVICE: 03/07/2020 SUBJECTIVE: The patient remains on the telemetry floor. She is status post ground level fall, in which she sustained a left distal femur periprosthetic fracture. She is postop day 3 from open reduction and internal fixation of this fracture. She remains in atrial fibrillation, but her rate controlled. She is tolerating a diet. Her pain is controlled. She has begun working with Physical Therapy and Case Management is working on placement at the [facility] in [place]. The patient is also being followed closely by Cardiology. Refer to their notes for further recommendations. PHYSICAL EXAMINATION: VITAL SIGNS: Temperature is 97.2, heart rate 91, blood pressure 127/73, respirations 16, and oxygen saturation 98% on room air. GENERAL: The patient is resting comfortably in bed. She is awake, alert, conversant, appropriate. [place] Coma Scale is 15. HEENT: Unremarkable. LUNGS: Clear to auscultation bilaterally with good inspiratory and expiratory effort. HEART: Irregularly irregular consistent with her atrial fibrillation. ABDOMEN: Soft and nontender with active bowel sounds. EXTREMITIES: Neurovascularly intact x4. LABORATORY FINDINGS: White blood cell count 12.2, hemoglobin 9.9, hematocrit 33.0, platelets 422. Sodium 137, potassium 4.6, chloride 103, CO2 of 24, BUN 23, creatinine 1.18, glucose 79, magnesium 2.2, and phosphorus 4.3. RADIOGRAPHS: There are no radiographs to review this morning. ASSESSMENT AND PLAN: 1. Status post ground level fall, hospital day 4. 2. Postop day 3, status post left distal femur periprosthetic fracture and open reduction and internal fixation of same. 3. Acute blood loss anemia, stable. 4. Atrial fibrillation, currently rate controlled. Plan will be to continue encouraging physical and occupational therapy. Recommendations by Cardiology, see their note for same. Continue working on placement. From a trauma/surgical standpoint, the patient is ready for transfer to rehab pending Cardiology recommendations. Job ID: [id number]
[2020-03-07] MEDS: Apixaban 5 MG TAB PO SCH (21:18)
[2020-03-08] MEDS: Acetaminophen 500 MG TAB PO SCH ×4 (03:00→21:09)
[2020-03-08] MEDS: traMADol HCl 50 MG TAB PO SCH ×4 (03:00→21:10)
[2020-03-08 05:01] LABS: #Basophils 0.1 thou/uL (0.0-0.2); #Eosinphils 0.9 thou/uL (0.0-0.7); #Lymphocytes 3.8 thou/uL (1.20-3.40); #Monocytes 0.7 thou/uL (0.11-0.59); #Neutrophils 5.9 thou/uL (1.40-6.50); %Basophils 0.6 % (0.0-1.0); %Eosinophils 7.8 % (0.0-10.0); %Lymphocytes 33.4 % (21.0-51.0); %Monocytes 6.3 % (0.0-10.0); %Neutrophils 51.9 % (42.0-75.0); Hemoglobin 9.4 g/dL (12.0-16.0); Mean Corpuscular HGB CONC 30.9 g/dL (32.0-36.0); Mean Corpuscular Hemoglobin 24.6 pg (27.0-31.0); Mean Corpuscular Volume 79.6 fL (78.0-98.0); Mean Platelet Volume 9.5 fL (7.4-10.4); Platelet Count 486 thou/uL (130-400); RBC Distribution Width 18.1 % (11.5-14.5); Red Blood Cell (RBC) Count 3.81 mill/uL (4.20-5.40); White Blood Cell (WBC) Count 11.3 thou/uL (4.8-10.8)
[2020-03-08 05:10] LABS: Anion Gap 14 mmol/L (10-20); BUN (Urea Nitrogen) 22 mg/dL (9.8-20.1); Calc. Creatinine Clearance 81 mL/min (70-130); Calcium 8.5 mg/dL (7.8-10.44); Carbon Dioxide 25 mmol/L (23-31); Chloride 102 mmol/L (98-107); Estimated GFR-MDRD 51; Glucose 75 mg/dL (83-110); Potassium 4.4 mmol/L (3.5-5.1); Sodium 137 mmol/L (136-145)
[2020-03-08] MEDS: Ibuprofen 600 MG TAB PO SCH ×3 (05:45→21:11)
[2020-03-08] MEDS: Levothyroxine 175 MCG TAB PO SCH (05:46)
[2020-03-08 06:58] LABS: Phosphorus 4.6 mg/dL (2.3-4.7)
[2020-03-08] MEDS: Furosemide 20 MG TAB PO SCH (08:42)
[2020-03-08] MEDS: Famotidine 20 MG TAB PO SCH ×2 (08:42→21:11)
[2020-03-08] MEDS: Ferrous Sulfate 325 MG TAB PO SCH ×2 (08:43→16:34)
[2020-03-08] MEDS: Carvedilol 6.25 MG TAB PO SCH ×2 (08:43→16:34)
[2020-03-08] MEDS: Apixaban 5 MG TAB PO SCH ×2 (08:43→21:12)
[2020-03-08] MEDS: Lisinopril 2.5 MG TAB PO SCH (08:43)
[2020-03-08] MEDS: Ascorbic Acid 500 mg Chewable Tablet PO SCH (08:43)
[2020-03-08] MEDS: Polyethylene Glycol 3350 17 GM Packet PO SCH (08:46)
[2020-03-08] MEDS: Senokot S 8.6-50 MG TAB PO SCH ×2 (08:46→21:12)
--- NOTE | 2020-03-08 14:38 | PDOC.CPN ---
- Subjective Date: 03/08/20 Time: 14:00 Interval history: patient doing well, no episodes of A-fib with RVR last night, she remains in a- fib, rate controlled at this time. She has no new complaints, she had some vomiting yesterday, but none today. Denies any nausea or abdominal pain. Denies any pain to her left leg. Denies and chest pain, shortness of breath, palpitations, dizziness. She did get up and walk a short distance with therapy this morning. - Review of Systems General: denies: fever/chills, weight/appetite/sleep changes, night sweats, fatigue Respiratory: denies: cough, congestion, shortness of breath, exercise in tolerance Cardiovascular: denies: chest pain, palpitation, edema, paroxysmal nocturnal dyspnea, orthopnea Gastrointestinal: denies: nausea, vomiting, diarrhea, constipation, abd pain, GI bleeding Musculoskeletal: denies: pain, tenderness, stiffness, swelling, arthritis/arthralgias Neurological: denies: numbness, syncope, seizure, weakness - Objective Allergies/Adverse Reactions: Allergies Allergy/AdvReac Type Severity Reaction Status Date / Time No Known Drug Allergies Allergy Verified 03/08/14 13:03 Visit Medications: Current Medications Acetaminophen (Acetaminophen 500 Mg Tab) 1,000 mg PO Q6H [facility] Last Admin: 03/08/20 08:45 Dose: 1,000 mg Documented by: Apixaban (Apixaban 5 Mg Tab) 5 mg PO BID [facility] Last Admin: 03/08/20 08:43 Dose: 5 mg Documented by: Ascorbic Acid (Ascorbic Acid 500 Mg Chewable Tablet) 500 mg PO DAILY [facility] Last Admin: 03/08/20 08:43 Dose: 500 mg Documented by: Carvedilol (Carvedilol 6.25 Mg Tab) 6.25 mg PO BID-[facility] Last Admin: 03/08/20 08:43 Dose: 6.25 mg Documented by: Cyclobenzaprine HCl (Cyclobenzaprine 10 Mg Tab) 5 mg PO TID PRN PRN Reason: Muscle Spasm Dextrose/Water (Dextrose 50% Abboject 50 Ml Syringe) 25 gm SLOW IVP PRN PRN PRN Reason: Hypoglycemia Famotidine (Famotidine 20 Mg Tab) 20 mg PO BID [facility] Last Admin: 03/08/20 08:42 Dose: 20 mg Documented by: Ferrous Sulfate (Ferrous Sulfate 325 Mg Tab) 325 mg PO BID-[facility] Last Admin: 03/08/20 08:43 Dose: 325 mg Documented by: Furosemide (Furosemide 20 Mg Tab) 20 mg PO DAILY [facility] Last Admin: 03/08/20 08:42 Dose: 20 mg Documented by: Glucagon (Glucagon 1 Mg/Ml Vial) 1 mg IM PRN PRN PRN Reason: Hypoglycemia Hydralazine HCl (Hydralazine 20 Mg/Ml Vial) 10 mg SLOW IVP Q4H PRN PRN Reason: SBP >160 Dextrose/Water (D5w) 1,000 mls @ 0 mls/hr IV .Q0M PRN PRN Reason: Hypoglycemia Ibuprofen (Ibuprofen 600 Mg Tab) 600 mg PO Q8HR [facility] Last Admin: 03/08/20 05:45 Dose: 600 mg Documented by: Levothyroxine Sodium (Levothyroxine 175 Mcg Tab) 175 mcg PO 0600 [facility] Last Admin: 03/08/20 05:46 Dose: 175 mcg Documented by: Lisinopril (Lisinopril 2.5 Mg Tab) 2.5 mg PO DAILY [facility] Last Admin: 03/08/20 08:43 Dose: 2.5 mg Documented by: Metoprolol Tartrate (Metoprolol Tartrate 5 Mg/5 Ml Vial) 5 mg IVP Q6H PRN PRN Reason: HR >120 Ondansetron HCl (Ondansetron Pf 4 Mg/2 Ml Vial) 4 mg IVP Q6H PRN PRN Reason: Nausea Last Admin: 03/07/20 11:04 Dose: 4 mg Documented by: Ondansetron HCl (Ondansetron Odt 4 Mg Tab) 4 mg PO Q6H PRN PRN Reason: Nausea/Vomiting Polyethylene Glycol (Polyethylene Glycol 3350 17 Gm Packet) 17 gm PO DAILY [facility] Last Admin: 03/08/20 08:46 Dose: Not Given Documented by: Senna/Docusate Sodium (Senokot S 8.6-50 Mg Tab) 2 tab PO BID [facility] Last Admin: 03/08/20 08:46 Dose: Not Given Documented by: Sodium Chloride (Flush - Normal Saline 10 Ml Syringe) 10 ml IVF PRN PRN PRN Reason: Saline Flush Last Admin: 03/07/20 11:05 Dose: 10 ml Documented by: Tramadol HCl (Tramadol Hcl 50 Mg Tab) 50 mg PO Q6H [facility] Last Admin: 03/08/20 08:46 Dose: Not Given Documented by: Tramadol HCl (Tramadol Hcl 50 Mg Tab) 50 mg PO Q6H PRN PRN Reason: Breakthrough Pain Vital Signs & Weight: Vital Signs Temp Pulse Pulse Pulse Resp BP BP 03/08/20 11:02 98.3 F 80 18 03/08/20 09:17 86 91 115/62 125/61 03/08/20 08:43 64 03/08/20 07:09 97.6 F 64 18 03/08/20 04:15 97.6 F 60 18 BP Pulse Ox 03/08/20 11:02 95/63 98 03/08/20 09:17 03/08/20 08:43 03/08/20 07:09 138/73 95 03/08/20 04:15 105/59 L 96 Weight 236 lb - Quality Measures Condition: Atrial Fibrillation/Flutter (hx or current) CV meds: Beta Salvador: Yes, Anticoagulant: Yes (starting Eliquis today ) - Physical Exam General: alert & oriented x3, appears well, no apparent distress HEENT: mucus membranes moist, normocephaly Neck: supple neck, no JVD/HJR, no bruit Cardiac: irregularly regular Lungs: clear to auscultation, normal breath sounds, normal exam, no wheeze, rales, rhonchi Neuro: grossly intact, motor function intact, sensory function intact Abdomen: active bowel sounds, soft, non-tender, no masses Extremities: no cyanosis, no clubbing, no edema, other: (left extremity with KRISTINA bandage and knee immobilizer, elevated on pillows. Wearing SCDS) Skin: clear Musculoskeletal: normal range of motion - Labs Result Diagrams: 03/08/20 04:40 03/08/20 04:40 Troponin/CKMB Troponin I Less than 0.010 ng/mL (< 0.028) 03/03/20 18:16 - EKG Interpretation EKG: WNL EKG shows: atrial fibrillation - Assessment/Plan Assessment/Plan: 1. S/P left femur fracture, doing well after surgery, patient denies any pain in left leg today. Walked with therapy today. Managed by trauma services. 2. Atrial fibrillation of uncertain duration, no episodes of RVR today, has maintained rate with increased dose of beta salvador yesterday, BP is well controlled, will consider starting Amiodarone at a later time after being on OAC . At this time considering early cardioversion after RON to rule out GINA thrombus. 3. Moderate left ventricular dysfunction with EF 35-40%, patient started on low dose Lisinopril yesterday, Creatinine slightly improved at 1.06 today. Will continue to monitor. 4. Moderate to severe mitral regurgitation, patient denies any SOB, SEBASTIAN, edema to BLE 5. Exertional dyspnea: patient was found to be in atrial fibrillation upon arrival to hospital, patient states her SEBASTIAN has gotten better during hospital stay, denies any SEBASTIAN today. 6. Hypothyroidism 7. Obesity Pt. seen and eval. by me. I agree with the A/P by the VIDEO GAMES STORYWRITER. She has no complaints and is awaiting placement for rehab. [email or web address]
[2020-03-09] MEDS: traMADol HCl 50 MG TAB PO SCH ×4 (03:04→22:11)
[2020-03-09] MEDS: Acetaminophen 500 MG TAB PO SCH ×4 (03:04→22:10)
[2020-03-09 04:38] LABS: #Basophils 0.1 thou/uL (0.0-0.2); #Lymphocytes 4.5 thou/uL (1.20-3.40); #Neutrophils 8.1 thou/uL (1.40-6.50); %Basophils 0.4 % (0.0-1.0); %Eosinophils 6.8 % (0.0-10.0); %Monocytes 6.7 % (0.0-10.0); %Neutrophils 55.1 % (42.0-75.0); Hemoglobin 10.6 g/dL (12.0-16.0); Mean Corpuscular HGB CONC 31.1 g/dL (32.0-36.0); Mean Corpuscular Hemoglobin 24.6 pg (27.0-31.0); Mean Corpuscular Volume 79.3 fL (78.0-98.0); Mean Platelet Volume 8.8 fL (7.4-10.4); Platelet Count 483 thou/uL (130-400); Red Blood Cell (RBC) Count 4.31 mill/uL (4.20-5.40); White Blood Cell (WBC) Count 14.6 thou/uL (4.8-10.8)
[2020-03-09 04:59] LABS: Anion Gap 14 mmol/L (10-20); BUN (Urea Nitrogen) 21 mg/dL (9.8-20.1); Calc. Creatinine Clearance 80 mL/min (70-130); Carbon Dioxide 26 mmol/L (23-31); Chloride 103 mmol/L (98-107); Estimated GFR-MDRD 50; Glucose 87 mg/dL (83-110); Phosphorus 4.2 mg/dL (2.3-4.7); Potassium 4.6 mmol/L (3.5-5.1); Sodium 138 mmol/L (136-145)
[2020-03-09] MEDS: Levothyroxine 175 MCG TAB PO SCH (05:59)
[2020-03-09] MEDS: Ibuprofen 600 MG TAB PO SCH ×3 (05:59→22:13)
[2020-03-09] MEDS: Carvedilol 6.25 MG TAB PO SCH ×2 (08:00→16:59)
[2020-03-09] MEDS: Ascorbic Acid 500 mg Chewable Tablet PO SCH (08:00)
[2020-03-09] MEDS: Ferrous Sulfate 325 MG TAB PO SCH ×2 (08:00→16:59)
[2020-03-09] MEDS: Furosemide 20 MG TAB PO SCH (08:00)
[2020-03-09] MEDS: Lisinopril 2.5 MG TAB PO SCH (08:00)
[2020-03-09] MEDS: Famotidine 20 MG TAB PO SCH ×2 (08:00→22:09)
[2020-03-09] MEDS: Polyethylene Glycol 3350 17 GM Packet PO SCH (08:01)
[2020-03-09] MEDS: Apixaban 5 MG TAB PO SCH ×2 (08:01→22:14)
[2020-03-09] MEDS: Senokot S 8.6-50 MG TAB PO SCH ×2 (08:01→22:12)
--- NOTE | 2020-03-09 20:26 | PRG ---
DATE OF SERVICE: 03/09/2020 SUBJECTIVE: The patient remained on the telemetry floor. She is status post a ground level fall, in which she sustained a left comminuted and displaced distal femur fracture. She has undergone open reduction and internal fixation of same. She remains in atrial fibrillation. She is currently rate controlled. She has been working with physical and occupational therapy and tolerating a diet. Her pain is controlled. PHYSICAL EXAMINATION: VITAL SIGNS: Temperature is 97.6, heart rate 78, blood pressure 101/57, respirations 18, oxygen saturation 98% on room air. GENERAL: The patient is resting comfortably in bed. She is awake, alert, conversant, appropriate. [place] Coma Scale is 15. HEENT: Unremarkable. LUNGS: Clear to auscultation with good inspiratory and expiratory effort. HEART: Irregularly irregular consistent with her atrial fibrillation. ABDOMEN: Soft, nondistended. EXTREMITIES: Neurovascularly intact x4. LABORATORY FINDINGS: White blood cell count 14.6, hemoglobin 10.6, hematocrit 34.2, platelets 43. Sodium 138, potassium 4.6, chloride 103, CO2 of 26, BUN 21, creatinine 1.07, glucose 87, magnesium 2.0, phosphorus 4.2. There are no radiographs reviewed this morning. ASSESSMENT: 1. Status post ground level fall, hospital day #6. 2. Postop day #5 status post left distal femur fracture open reduction and internal fixation. 3. Acute blood loss anemia, stable. 4. Atrial fibrillation, currently rate controlled. PLAN: Will be to continue encouraging physical and occupational therapy, supportive care. Medical recommendations per Cardiology and continue working towards placement. The patient was evaluated this morning with Dr. Krueger during rounds. Job ID: [id number]
[2020-03-10] MEDS: traMADol HCl 50 MG TAB PO SCH ×4 (03:30→20:50)
[2020-03-10] MEDS: Acetaminophen 500 MG TAB PO SCH ×4 (03:30→20:53)
[2020-03-10 04:48] LABS: #Basophils 0.1 thou/uL (0.0-0.2); #Eosinphils 0.9 thou/uL (0.0-0.7); #Lymphocytes 3.6 thou/uL (1.20-3.40); #Monocytes 0.8 thou/uL (0.11-0.59); #Neutrophils 6.4 thou/uL (1.40-6.50); %Basophils 0.9 % (0.0-1.0); %Eosinophils 7.8 % (0.0-10.0); %Lymphocytes 30.3 % (21.0-51.0); %Neutrophils 53.9 % (42.0-75.0); Hemoglobin 9.4 g/dL (12.0-16.0); Mean Corpuscular HGB CONC 30.9 g/dL (32.0-36.0); Mean Corpuscular Hemoglobin 24.3 pg (27.0-31.0); Mean Corpuscular Volume 78.7 fL (78.0-98.0); Mean Platelet Volume 8.8 fL (7.4-10.4); Platelet Count 549 thou/uL (130-400); RBC Distribution Width 18.4 % (11.5-14.5); Red Blood Cell (RBC) Count 3.88 mill/uL (4.20-5.40); White Blood Cell (WBC) Count 11.8 thou/uL (4.8-10.8)
[2020-03-10 05:13] LABS: Anion Gap 15 mmol/L (10-20); BUN (Urea Nitrogen) 21 mg/dL (9.8-20.1); Calc. Creatinine Clearance 78 mL/min (70-130); Calcium 8.3 mg/dL (7.8-10.44); Carbon Dioxide 27 mmol/L (23-31); Chloride 102 mmol/L (98-107); Estimated GFR-MDRD 50; Glucose 96 mg/dL (83-110); Potassium 3.9 mmol/L (3.5-5.1); Sodium 140 mmol/L (136-145)
[2020-03-10] MEDS: Levothyroxine 175 MCG TAB PO SCH (05:47)
[2020-03-10] MEDS: Ibuprofen 600 MG TAB PO SCH ×3 (05:47→21:00)
[2020-03-10] MEDS: Carvedilol 6.25 MG TAB PO SCH ×2 (08:03→16:52)
[2020-03-10] MEDS: Ferrous Sulfate 325 MG TAB PO SCH ×2 (08:03→16:52)
[2020-03-10] MEDS: Lisinopril 2.5 MG TAB PO SCH (08:03)
[2020-03-10] MEDS: Furosemide 20 MG TAB PO SCH (08:03)
[2020-03-10] MEDS: Ascorbic Acid 500 mg Chewable Tablet PO SCH (08:03)
[2020-03-10] MEDS: Apixaban 5 MG TAB PO SCH ×2 (08:03→20:53)
[2020-03-10] MEDS: Famotidine 20 MG TAB PO SCH ×2 (08:03→20:53)
[2020-03-10] MEDS: Polyethylene Glycol 3350 17 GM Packet PO SCH (08:05)
[2020-03-10] MEDS: Senokot S 8.6-50 MG TAB PO SCH ×2 (08:05→20:54)
--- NOTE | 2020-03-10 16:36 | PRG ---
DATE OF SERVICE: 03/10/2020 SUBJECTIVE: The patient was seen this morning during rounds. She was sitting up in bed, awake and alert with no signs of acute distress. She reported that her pain was well controlled. She was working with Physical and Occupational Therapy. She was able to get up out of bed and sit in the chair yesterday. She is tolerating her diet. Her rate is controlled. She is currently also being followed by Dr. Daly and Dr. White pending discharge to a skilled facility in the [place], [place]. OBJECTIVE: VITAL SIGNS: Temperature 97.6, pulse 76, respirations 18, oxygen saturation 97% on room air, blood pressure 105/61. GENERAL: Elderly female, sitting up in bed with no signs of acute distress. PULMONARY: Equal chest rise and fall. Clear breath sounds bilaterally. No signs of acute respiratory distress. CARDIAC: Regular rate and rhythm. GI: Abdomen is soft, nontender, nondistended. EXTREMITIES: 2+ pulses in all extremities. Gross motor sensation is intact. No significant swelling noted. NEUROLOGIC: GCS is 15. Pupils are equal, round, reactive to light bilaterally. LABORATORY FINDINGS: White count 11.8, hemoglobin 9.4, hematocrit 30.5, platelets 549. Sodium 140, potassium 3.9, chloride 102, bicarb 27, BUN 21, creatinine 1.08, glucose 96. DIAGNOSTIC FINDINGS: There are no new diagnostic findings to discuss. ASSESSMENT: 1. Status post mechanical fall from standing. 2. Left distal periprosthetic femur fracture, status post repair, now postop day 6. 3. Atrial fibrillation with rapid ventricular response, now rate controlled, new to this hospital admission. 4. Acute kidney injury, resolved. 5. History of hypertension, hypothyroidism, and gastroesophageal reflux disease. PLAN: Continue current regular diet. Continue physical and occupational therapy. Continue DVT prophylaxis with full anticoagulation of Eliquis per Cardiology as well as for atrial fibrillation. Continue rate control with carvedilol and continue current antihypertensives as well. Continue supportive care. The patient is pending discharge to assisted facility in [place], [place]. She is ready for discharge at this time. This patient was discussed with Dr. Krueger. Job ID: [id number] MTDD
[2020-03-11] MEDS: Acetaminophen 500 MG TAB PO SCH ×3 (03:00→15:21)
[2020-03-11] MEDS: traMADol HCl 50 MG TAB PO SCH ×3 (03:00→15:21)
[2020-03-11 05:06] LABS: #Basophils 0.1 thou/uL (0.0-0.2); #Lymphocytes 3.3 thou/uL (1.20-3.40); #Monocytes 0.9 thou/uL (0.11-0.59); #Neutrophils 6.5 thou/uL (1.40-6.50); %Basophils 0.7 % (0.0-1.0); %Eosinophils 8.7 % (0.0-10.0); %Lymphocytes 27.9 % (21.0-51.0); %Monocytes 7.5 % (0.0-10.0); %Neutrophils 55.3 % (42.0-75.0); Hemoglobin 9.9 g/dL (12.0-16.0); Mean Corpuscular HGB CONC 30.6 g/dL (32.0-36.0); Mean Corpuscular Hemoglobin 24.5 pg (27.0-31.0); Mean Platelet Volume 8.6 fL (7.4-10.4); Platelet Count 529 thou/uL (130-400); RBC Distribution Width 18.8 % (11.5-14.5); Red Blood Cell (RBC) Count 4.04 mill/uL (4.20-5.40); White Blood Cell (WBC) Count 11.7 thou/uL (4.8-10.8)
[2020-03-11 05:17] LABS: Anion Gap 14 mmol/L (10-20); BUN (Urea Nitrogen) 22 mg/dL (9.8-20.1); Calc. Creatinine Clearance 74 mL/min (70-130); Calcium 8.6 mg/dL (7.8-10.44); Carbon Dioxide 26 mmol/L (23-31); Chloride 104 mmol/L (98-107); Estimated GFR-MDRD 47; Glucose 83 mg/dL (83-110); Potassium 3.9 mmol/L (3.5-5.1); Sodium 140 mmol/L (136-145)
[2020-03-11] MEDS: Levothyroxine 175 MCG TAB PO SCH (07:07)
[2020-03-11] MEDS: Apixaban 5 MG TAB PO SCH (08:20)
[2020-03-11] MEDS: Famotidine 20 MG TAB PO SCH (08:20)
[2020-03-11] MEDS: Ascorbic Acid 500 mg Chewable Tablet PO SCH (08:21)
[2020-03-11] MEDS: Furosemide 20 MG TAB PO SCH (08:21)
[2020-03-11] MEDS: Polyethylene Glycol 3350 17 GM Packet PO SCH (08:21)
[2020-03-11] MEDS: Carvedilol 6.25 MG TAB PO SCH ×2 (08:21→17:34)
[2020-03-11] MEDS: Ferrous Sulfate 325 MG TAB PO SCH ×2 (08:21→17:34)
[2020-03-11] MEDS: Lisinopril 2.5 MG TAB PO SCH (08:21)
[2020-03-11] MEDS: Senokot S 8.6-50 MG TAB PO SCH (08:21)
[2020-03-11 15:28] VITALS: BP 133/60; TEMP 97
--- NOTE | 2020-03-11 21:39 | DIS ---
DATE OF ADMISSION: 03/03/2020 DATE OF DISCHARGE: 03/11/2020 ADMISSION DIAGNOSES: 1. Mechanical fall from standing. 2. Left distal periprosthetic femur fracture. 3. Atrial fibrillation with rapid ventricular response, new onset. 4. Acute kidney injury. DISCHARGE DIAGNOSES: 1. Mechanical fall from standing. 2. Left distal periprosthetic femur fracture. 3. Atrial fibrillation with rapid ventricular response, new onset. 4. Acute kidney injury. CONSULTING PHYSICIANS: Dr. Daly of Orthopedic Surgery and Dr. White of Cardiology. PROCEDURE: The patient went to the OR on March 04, 2020, and had an open reduction and internal fixation of the left distal femur fracture. HOSPITAL COURSE: The patient is a 70-year-old female who presented to the emergency department after mechanical fall. She was found to have a left distal periprosthetic femur fracture and was admitted to the Trauma Service. Dr. Daly was consulted who took the patient to the OR on the for an ORIF of the left distal femur fracture. The patient also had acute kidney injury on arrival, which resolved by the time she was discharged. The patient also developed atrial fibrillation with RVR, which was new. Dr. White of Cardiology evaluated her. She was rate controlled with carvedilol and ultimately discharged [place] [facility] with followup. At the time of discharge, her pain was well controlled. She was tolerating a regular diet. She was working with Physical and Occupational Therapy, and was moving around safely with a walker. DISCHARGE DISPOSITION: care home facility. DISCHARGE CONDITION: Satisfactory. PHYSICAL EXAMINATION: VITAL SIGNS: Temperature 96.8, pulse 79, respirations 18, oxygen saturation 96% on room air, blood pressure 128/60. GENERAL: Well-appearing elderly female, sitting up in bed with no signs of acute distress. PULMONARY: Equal chest rise and fall. No signs of acute respiratory distress. CARDIAC: Irregular rate and rhythm. No murmurs, gallops, or rubs. GASTROINTESTINAL: Soft, nontender, nondistended. EXTREMITIES: 2+ pulses in all extremities. Gross motor and sensation are intact. No significant swelling noted. NEUROLOGIC: GCS is 15. DISCHARGE INSTRUCTIONS: The patient was discharged to a [place] [facility]. Activity as tolerated. Nonweightbearing to the left lower extremity. Regular diet. She will have occupational therapy as well as physical therapy. She will have a walker and an incentive spirometer. DISCHARGE MEDICATIONS: Include: 1. Tylenol. 2. Eliquis. 3. Vitamin C. 4. Carvedilol. 5. Flexeril. 6. Pepcid. 7. Ferrous sulfate. 8. Lasix. 9. Prevacid. 10. Synthroid. 11. Lisinopril. 12. MiraLAX. 13. Senokot. 14. Tramadol. FOLLOWUP APPOINTMENTS: No followup needed with Dr. Krueger. The patient will follow up with Dr. White in [address] Daly in 2 to 3 weeks. This is a summary of the patient's hospitalization. For full details, please see her medical record in its entirety. Job ID: [id number]
== END 2020-03-11 17:55 | DRG 481 ==
LOC: ERS 16:37 → 2NO 18:37
PROVIDERS: ADMIT Specialist; ATTEND Specialist
PROC: 0QSC04Z Reposition Left Lower Femur with Internal Fixation Device, Open Approach (ICD-10-PCS; principal; 2020-03-04)
DX: S79.102A Unspecified physeal fracture of lower end of left femur, initial encounter for closed fracture (principal); M97.12XA Periprosthetic fracture around internal prosthetic left knee joint, initial encounter; D62 Acute posthemorrhagic anemia; N17.9 Acute kidney failure, unspecified; Z20.828 Contact with and (suspected) exposure to other viral communicable diseases; W01.0XXA Fall on same level from slipping, tripping and stumbling without subsequent striking against object, initial encounter; I48.91 Unspecified atrial fibrillation; K21.9 Gastro-esophageal reflux disease without esophagitis; E03.9 Hypothyroidism, unspecified; I10 Essential (primary) hypertension; Z96.653 Presence of artificial knee joint, bilateral; E66.9 Obesity, unspecified; Z79.890 Hormone replacement therapy; Z79.899 Other long term (current) drug therapy; Z90.49 Acquired absence of other specified parts of digestive tract; Z68.36 Body mass index [BMI] 36.0-36.9, adult
CPT/HCPCS: 36415; 71045; 76000; 80048; 80053; 80061; 82550; 83735; 83880; 84100; 84443; 84484; 85025; 87635; 90471; 90662; 93005; 93306; 96374; 96375; 96376; C1713; G0008; G0390; J0690; J1100; J1885; J2270; J2405; J2704; J2765; J3010; J3475; J3480; J3490; U0003

== ENCOUNTER 2020-12-30 05:58 | Day surgery (SDC) | payer MEDICARE ==
[2020-12-25 19:45] LABS: ALT (SGPT) 11 U/L (8-55); AST (SGOT) 14 U/L (5-34); Albumin 4.1 g/dL (3.4-4.8); Alkaline Phosphatase 100 U/L (40-110); Anion Gap 16 mmol/L (10-20); BUN (Urea Nitrogen) 16 mg/dL (9.8-20.1); Bilirubin, Total 0.4 mg/dL (0.2-1.2); Calc. Creatinine Clearance 47 mL/min (70-130); Calcium 9.9 mg/dL (7.8-10.44); Carbon Dioxide 26 mmol/L (23-31); Chloride 98 mmol/L (98-107); Globulin 3.8 g/dL (2.4-3.5); Glucose 98 mg/dL (83-110); Potassium 4.4 mmol/L (3.5-5.1); Protein, Total 7.9 g/dL (5.8-8.1); Sodium 136 mmol/L (136-145)
[2020-12-25 19:56] LABS: #Basophils 0.2 10x3/uL (0.0-0.2); #Eosinphils 1.2 10x3/uL (0.0-0.5); #Monocytes 0.9 10x3/uL (0.0-1.1); #Neutrophils 11.2 10x3/uL (1.5-8.4); %Basophils 1.3 % (0.0-2.0); %Eosinophils 6.9 % (0.0-6.0); %Lymphocytes 19.3 % (18.0-47.0); %Monocytes 5.4 % (0.0-10.0); %Neutrophils 66.7 % (40.0-75.0); Hemoglobin 11.8 g/dL (12.0-15.5); Mean Corpuscular HGB CONC 28.2 g/dL (32.0-36.0); Mean Corpuscular Hemoglobin 20.9 pg (27.0-33.0); Mean Corpuscular Volume 74.2 fl (81.6-98.3); Mean Platelet Volume 10.9 fl (7.4-10.4); Platelet Count 639 10x3/uL (150-450); RBC Distribution Width 19.2 % (11.5-14.5); Red Blood Cell (RBC) Count 5.65 10x6/uL (3.90-5.03); White Blood Cell (WBC) Count 16.7 10x3/uL (3.5-10.5)
[2020-12-26 13:29] LABS: SARS-CoV-2 PCR by NAA Not Detected (NotDetected)
[2020-12-29 11:43] VITALS: BMI 33.9
[2020-12-30] MEDS ORDERED: Heparin 10,000 UNITS/ 10 ML VIAL ONE (06:36)
[2020-12-30] MEDS ORDERED: Fentanyl 100 MCG/2 ML VIAL ONE (07:18)
[2020-12-30] MEDS ORDERED: Midazolam HCl 2 mg/2 ml Vial ONE (07:18)
[2020-12-30 07:27] LABS: Cardiac Risk 3.3 (Less than 4.5)
[2020-12-30] MEDS ORDERED: Protamine Sulfate 50 MG/5 ML VIAL ONE (07:50)
[2020-12-30] MEDS ORDERED: Iopamidol 370 76% 100 ML VIAL ONE (11:37)
[2020-12-30] MEDS ORDERED: Iopamidol 370 76% 50 ML VIAL FS ONE (11:37)
== END 2020-12-30 15:25 | disposition home or self-care (01) ==
LOC: CCL 05:58
PROVIDERS: ATTEND Internal Medicine Cardiovascular Disease
PROC: 4A023N7 Measurement of Cardiac Sampling and Pressure, Left Heart, Percutaneous Approach (ICD-10-PCS; principal; 2020-12-30)
PROC: B2111ZZ Fluoroscopy of Multiple Coronary Arteries using Low Osmolar Contrast (ICD-10-PCS; 2020-12-30)
DX: I25.10 Atherosclerotic heart disease of native coronary artery without angina pectoris (principal); I34.0 Nonrheumatic mitral (valve) insufficiency; E89.0 Postprocedural hypothyroidism; K21.9 Gastro-esophageal reflux disease without esophagitis; I48.91 Unspecified atrial fibrillation; I13.0 Hypertensive heart and chronic kidney disease with heart failure and stage 1 through stage 4 chronic kidney disease, or unspecified chronic kidney disease; I50.20 Unspecified systolic (congestive) heart failure; N18.4 Chronic kidney disease, stage 4 (severe); E66.9 Obesity, unspecified; Z68.34 Body mass index [BMI] 34.0-34.9, adult; Z79.01 Long term (current) use of anticoagulants; Z79.899 Other long term (current) drug therapy
CPT/HCPCS: 36415; 80053; 80061; 85025; 85347; 93460; 93561; 99152; J1644; J2250; J2720; J3010; Q9967; U0003; U0005

== ENCOUNTER 2021-02-15 12:47 | Outpatient (CLI) | payer MEDICARE ==
[2021-02-15 14:40] LABS: Hemoglobin 8.2 g/dL (12.0-15.5); Mean Corpuscular HGB CONC 28.8 g/dL (32.0-36.0); Mean Corpuscular Hemoglobin 19.3 pg (27.0-33.0); Mean Corpuscular Volume 67.2 fl (81.6-98.3); Mean Platelet Volume 9.9 fl (7.4-10.4); Platelet Count 516 10x3/uL (150-450); RBC Distribution Width 18.8 % (11.5-14.5); Red Blood Cell (RBC) Count 4.24 10x6/uL (3.90-5.03); White Blood Cell (WBC) Count 27.6 10x3/uL (3.5-10.5)
[2021-02-15 14:55] LABS: INR-International Normal Ratio 1.3; Prothrombin Time 14.6 sec (9.5-12.1)
[2021-02-15 15:26] LABS: Anion Gap 17 mmol/L (10-20); BUN (Urea Nitrogen) 46 mg/dL (9.8-20.1); Calc. Creatinine Clearance 0 mL/min (70-130); Carbon Dioxide 21 mmol/L (23-31); Chloride 93 mmol/L (98-107); Glucose 128 mg/dL (83-110); Potassium 4.4 mmol/L (3.5-5.1); Sodium 127 mmol/L (136-145)
[2021-02-15 20:29] LABS: SARS-CoV-2 PCR by NAA Not Detected (NotDetected)
== END 2021-02-15 12:48 | disposition home or self-care (01) ==
LOC: LABBT 12:47
PROVIDERS: ATTEND Internal Medicine Cardiovascular Disease
DX: Z01.812 Encounter for preprocedural laboratory examination (principal); R94.39 Abnormal result of other cardiovascular function study; Z20.822 Contact with and (suspected) exposure to COVID-19
CPT/HCPCS: 80048; 85027; 85610; 85730; U0003; U0005

== ENCOUNTER 2021-02-17 06:16 | Inpatient (IN) | payer MEDICARE ==
[2021-02-17] MEDS ORDERED: Fentanyl 100 MCG/2 ML VIAL ONE (06:39)
[2021-02-17] MEDS ORDERED: Midazolam HCl 2 mg/2 ml Vial ONE (06:39)
[2021-02-17 07:15] LABS: Hemoglobin 9.1 g/dL (12.0-16.0); Mean Corpuscular HGB CONC 29.6 g/dL (32.0-36.0); Mean Corpuscular Hemoglobin 19.7 pg (27.0-31.0); Mean Corpuscular Volume 66.4 fL (78.0-98.0); Mean Platelet Volume 9.3 fL (7.4-10.4); Platelet Count 474 thou/uL (130-400); RBC Distribution Width 18.1 % (11.5-14.5); Red Blood Cell (RBC) Count 4.62 mill/uL (4.20-5.40); White Blood Cell (WBC) Count 27.8 thou/uL (4.8-10.8)
[2021-02-17 07:22] LABS: PTT 38.7 sec (22.9-36.1); Prothrombin Time 22.8 sec (12.0-14.7)
[2021-02-17 07:31] LABS: Anion Gap 18 mmol/L (10-20); BUN (Urea Nitrogen) 59 mg/dL (9.8-20.1); Calc. Creatinine Clearance 19 mL/min (70-130); Calcium 9.4 mg/dL (7.8-10.44); Carbon Dioxide 21 mmol/L (23-31); Chloride 93 mmol/L (98-107); Glucose 121 mg/dL (83-110); Potassium 4.3 mmol/L (3.5-5.1); Sodium 128 mmol/L (136-145)
[2021-02-17 08:21] LABS: Band 9 % (5-11); Elliptocytes SLIGHT = 2-5 cells (100X) (0-1/hpf); Eosinophils 1 % (0-10); Hypochromia MODERATE=16-30 cells (100X) (0-5/hpf); Lymphocytes 3 % (21-51); MDiff Complete? YES; Microcytosis MODERATE=15-30 cells (100X) (0-5/hpf); Monocytes 3 % (0-10); Neutrophil 84 % (42-75); Nucleated RBC 1 % (0); Ovalocytes SLIGHT = 2-5 cells (100X) (0-1/hpf); Platelet Morphology Comment Appears Increased; Polychromasia MODERATE = 3-4 cells (100X) (0-2/hpf); Reflex for Review?? YES
[2021-02-17] MEDS ORDERED: Ondansetron PF 4 MG/2 ML Vial IVP PRN (09:42)
[2021-02-17] MEDS ORDERED: HYDROcodone/Acetaminophen 5/325 mg Tablet PO PRN (09:42)
[2021-02-17] MEDS ORDERED: traMADol HCl 50 MG TAB PO PRN (11:03)
[2021-02-17] MEDS ORDERED: Furosemide 40 MG/4 ML VIAL SLOW IVP SCH (11:15)
[2021-02-17] MEDS: cefTRIAXone\\ROCEPHIN 1 GM in Sodium Chloride 0.9% 100 ML IVPB SCH (12:24)
[2021-02-17] MEDS: Azithromycin 500 MG in Sodium Chloride 0.9% 250 ML 250 ML IVPB SCH (13:30)
[2021-02-17] MEDS ORDERED: FLU VACC QS2021-22(65YR UP)/PF 240 MCG/0.7 ML SYRINGE IM ONE (16:00)
[2021-02-17] MEDS: Sodium Chloride 0.9% 1,000 ML IV SCH (18:10)
[2021-02-17 18:47] LABS: Bacteria/HPF 4+ HPF (None Seen); Bilirubin 1+ (Negative); Blood, Urine 3+ (Negative); Clarity Turbid (Clear); Glucose, Urine (Dipstick) Normal (Negative); Ketone, Urine Negative (Negative); Leukocyte 500 Leu/uL (Negative); Nitrite Negative (Negative); Protein, Urine (Dipstick) 100 mg/dL (Neg-Trace); RBC/HPF Greater than 50 HPF (0-3); Specific Gravity, Urine 1.021 (1.002-1.036); Urobilinogen 3 mg/dL (Less than 2); WBC/HPF Greater than 50 HPF (0-3)
[2021-02-17 18:49] LABS: Urine Culture Reflex No No
[2021-02-17 19:07] LABS: Creatinine, Urine 340.95 mg/dL (47-110); Protein, Urine Random Quant 105 mg/dL (1-14); Sodium, Urine Less than 20 mmol/L (Not Available); Urea Nitrogen, Random Urine 213 mg/dl
[2021-02-17] MEDS ORDERED: Carvedilol 3.125 MG TAB PO SCH ×2 (21:00)
[2021-02-17] MEDS ORDERED: Apixaban 5 MG TAB PO SCH (21:00)
[2021-02-18] MEDS: Sodium Chloride 0.9% 1,000 ML IV SCH ×3 (03:00→15:07)
[2021-02-18 05:42] LABS: Albumin 3.6 g/dL (3.4-4.8)
[2021-02-18 05:44] LABS: Anion Gap 21 mmol/L (10-20); BUN (Urea Nitrogen) 62 mg/dL (9.8-20.1); Calc. Creatinine Clearance 17 mL/min (70-130); Calcium 9.1 mg/dL (7.8-10.44); Carbon Dioxide 18 mmol/L (23-31); Chloride 94 mmol/L (98-107); Glucose 91 mg/dL (83-110); Magnesium 2.2 mg/dL (1.6-2.6); Potassium 4.3 mmol/L (3.5-5.1); Sodium 129 mmol/L (136-145)
[2021-02-18 05:57] LABS: Anisocytosis SLIGHT = 6-15 cells (100X) (0-5/hpf); Band 4 % (5-11); Eosinophils 2 % (0-10); Hemoglobin 8.6 g/dL (12.0-16.0); Hypochromia MODERATE=16-30 cells (100X) (0-5/hpf); Lymphocytes 3 % (21-51); MDiff Complete? YES; Mean Corpuscular HGB CONC 29.2 g/dL (32.0-36.0); Mean Corpuscular Hemoglobin 19.7 pg (27.0-31.0); Mean Corpuscular Volume 67.5 fL (78.0-98.0); Mean Platelet Volume 10.1 fL (7.4-10.4); Microcytosis SLIGHT = 6-15 cells (100X) (0-5/hpf); Monocytes 5 % (0-10); Neutrophil 86 % (42-75); Platelet Count 400 thou/uL (130-400); RBC Distribution Width 18.2 % (11.5-14.5); Red Blood Cell (RBC) Count 4.35 mill/uL (4.20-5.40); White Blood Cell (WBC) Count 32.5 thou/uL (4.8-10.8)
[2021-02-18] MEDS ORDERED: Bupivacaine PF 0.5% 30 ML VIAL ONE (06:25)
[2021-02-18] MEDS ORDERED: EPINEPHrine 1 MG/ML AMP ONE (06:25)
[2021-02-18] MEDS ORDERED: Fentanyl 100 MCG/2 ML VIAL ONE (06:46)
[2021-02-18] MEDS: Levothyroxine Sodium 125 MCG TAB PO SCH (07:41)
[2021-02-18] MEDS ORDERED: PHENYLEPHRINE-NS 100 MCG/ML 10 ML SYRINGE ONE ×2 (07:53→08:24)
[2021-02-18] MEDS ORDERED: Dexamethasone 20 MG/5 ML VIAL ONE (07:53)
[2021-02-18] MEDS ORDERED: Ondansetron PF 4 MG/2 ML Vial ONE (07:53)
[2021-02-18] MEDS ORDERED: ePHEDrine 50 MG/ML VIAL ONE (07:53)
[2021-02-18] MEDS ORDERED: Lidocaine 1% PF 5 ML VIAL ONE (07:53)
[2021-02-18] MEDS ORDERED: DOBUTamine 500 mg/250 ml 250 ML ONE (08:29)
[2021-02-18] MEDS ORDERED: Fentanyl 100 MCG/2 ML VIAL SLOW IVP PRN (08:29)
[2021-02-18] MEDS ORDERED: DOPamine 400 MG/D5W 250 ML 250 ML ONE (08:44)
[2021-02-18] MEDS ORDERED: DOPamine 400 MG/D5W 250 ML 250 ML IVPB SCH (08:45)
[2021-02-18] MEDS ORDERED: Sodium Bicarbonate Tab 325 MG TAB PO SCH (09:00)
[2021-02-18] MEDS ORDERED: Non-Formulary Item 1 EACH (Levothyroxine Sodium [Levothyroxine] 125 MCG Capsule) PO SCH (09:00)
[2021-02-18] MEDS ORDERED: Amiodarone 200 MG TAB PO SCH (09:00)
[2021-02-18] MEDS ORDERED: Furosemide 40 MG/4 ML VIAL SLOW IVP SCH ×2 (09:00→23:00)
[2021-02-18] MEDS ORDERED: traMADol HCl 50 MG TAB PO PRN (10:30)
[2021-02-18] MEDS ORDERED: Promethazine HCl 25 MG/ML VIAL IVPB PRN (10:34)
[2021-02-18] MEDS ORDERED: Ondansetron HCl/PF 4 MG/2 ML Vial IVP PRN (10:34)
[2021-02-18] MEDS ORDERED: Promethazine HCl 25 MG/ML VIAL IM PRN (10:34)
[2021-02-18 10:55] LABS: Actual Bicarbonate (HCO3a) 18.8 mEq/L (22-28); Base Excess (BEa) -8.6 mEq/L (-2.0 to +3.0); CO2 Tension 47.5 mmHg (35.0-45.0); Calcium, Ionized (arterial) 1.12 mmol/L (1.12-1.30); Carboxyhemoglobin (COHb) 0.6 gm% (0.0-3.0); Hemoglobin (Hb) 8.9 g/dL (12.0-16.0); O2 Tension (PaO2), arterial 100.7 mmHg (> 70.0); Potassium - ABG Lab 4.08 mmol/L (3.70-5.30)
[2021-02-18 10:56] LABS: ALV-art Gradient 410.325 mmHg (0-20); Puncture Site RFA; pH, Arterial 7.22 (7.35-7.45)
[2021-02-18] MEDS: Atorvastatin Calcium 40 MG TAB PO SCH (12:34)
[2021-02-18] MEDS: cefTRIAXone\\ROCEPHIN 1 GM in Sodium Chloride 0.9% 100 ML IVPB SCH (12:37)
[2021-02-18] MEDS ORDERED: Furosemide 100 MG/10 ML VIAL SLOW IVP SCH (13:15)
[2021-02-18] MEDS: Azithromycin 500 MG in Sodium Chloride 0.9% 250 ML 250 ML IVPB SCH (13:40)
[2021-02-18 14:57] LABS: Albumin 3.3 g/dL (3.4-4.8); Anion Gap 21 mmol/L (10-20); BUN (Urea Nitrogen) 62 mg/dL (9.8-20.1); BUN/Creatinine Ratio 12.35; Calc. Creatinine Clearance 16 mL/min (70-130); Calcium 8.8 mg/dL (7.8-10.44); Carbon Dioxide 15 mmol/L (23-31); Chloride 98 mmol/L (98-107); Glucose 129 mg/dL (83-110); Potassium 4.5 mmol/L (3.5-5.1); Sodium 129 mmol/L (136-145)
[2021-02-18] MEDS ORDERED: Sodium Bicarbonate 150 MEQ in Dextrose 5% in Water 850 ML IV SCH (15:15)
[2021-02-18 16:47] LABS: Actual Bicarbonate (HCO3a) 19.1 mEq/L (22-28); Base Excess (BEa) -6.6 mEq/L (-2.0 to +3.0); CO2 Tension 39.1 mmHg (35.0-45.0); Calcium, Ionized (arterial) 1.12 mmol/L (1.12-1.30); Carboxyhemoglobin (COHb) 0.6 gm% (0.0-3.0); O2 Tension (PaO2), arterial 88.4 mmHg (> 70.0); Potassium - ABG Lab 4.28 mmol/L (3.70-5.30); pH, Arterial 7.31 (7.35-7.45)
[2021-02-18 16:49] LABS: ALV-art Gradient 62.365 mmHg (0-20); Puncture Site RRA
[2021-02-19 05:00] LABS: Anion Gap 13 mmol/L (10-20); BUN (Urea Nitrogen) 63 mg/dL (9.8-20.1); Calc. Creatinine Clearance 20 mL/min (70-130); Calcium 8.5 mg/dL (7.8-10.44); Carbon Dioxide 26 mmol/L (23-31); Chloride 96 mmol/L (98-107); Glucose 174 mg/dL (83-110); Sodium 131 mmol/L (136-145)
[2021-02-19 05:34] LABS: Anisocytosis SLIGHT = 6-15 cells (100X) (0-5/hpf); Band 5 % (5-11); Burr Cells SLIGHT = 2-5 cells (100X) (0-1/hpf); Hemoglobin 8.2 g/dL (12.0-16.0); Hypochromia MODERATE=16-30 cells (100X) (0-5/hpf); Lymphocytes 3 % (21-51); MDiff Complete? YES; Mean Corpuscular HGB CONC 29.2 g/dL (32.0-36.0); Mean Corpuscular Hemoglobin 19.7 pg (27.0-31.0); Mean Corpuscular Volume 67.6 fL (78.0-98.0); Mean Platelet Volume 9.6 fL (7.4-10.4); Monocytes 2 % (0-10); Myelocyte 1 % (0-0); Neutrophil 88 % (42-75); Platelet Count 388 thou/uL (130-400); Platelet Morphology Comment Appears Adequate; Reactive Lymphocytes 1 % (0-10); Red Blood Cell (RBC) Count 4.15 mill/uL (4.20-5.40); Tear Drops SLIGHT = 2-5 cells (100X) (0-1/hpf); Toxic Granulation SLIGHT
[2021-02-19] MEDS: Levothyroxine Sodium 125 MCG TAB PO SCH (05:59)
[2021-02-19] MEDS: Sodium Chloride 0.9% 1,000 ML IV SCH (08:53)
[2021-02-19] MEDS: Atorvastatin Calcium 40 MG TAB PO SCH (08:53)
[2021-02-19] MEDS: cefTRIAXone\\ROCEPHIN 1 GM in Sodium Chloride 0.9% 100 ML IVPB SCH (10:07)
[2021-02-19] MEDS: Azithromycin 500 MG in Sodium Chloride 0.9% 250 ML 250 ML IVPB SCH (11:11)
[2021-02-19] MEDS ORDERED: Furosemide 40 MG/4 ML VIAL SLOW IVP SCH (14:00)
[2021-02-19 16:31] LABS: Bilirubin Negative (Negative); Blood, Urine Trace (Negative); Clarity Clear (Clear); Glucose, Urine (Dipstick) Normal (Negative); Ketone, Urine Negative (Negative); Leukocyte 250 Leu/uL (Negative); Nitrite Negative (Negative); Protein, Urine (Dipstick) Negative (Neg-Trace); RBC/HPF 0-3 HPF (0-3); Specific Gravity, Urine 1.012 (1.002-1.036); Squamous Epithelial 0-3 HPF (0-3); Urobilinogen Normal mg/dL (Less than 2); WBC/HPF 21-50 HPF (0-3)
[2021-02-19 16:32] LABS: Bacteria/HPF 1+ HPF (None Seen)
[2021-02-19 16:33] LABS: Urine Culture Reflex Yes Yes
[2021-02-20] MEDS: Sodium Chloride 0.9% 1,000 ML IV SCH (03:44)
[2021-02-20] MEDS ORDERED: Sodium Chloride 0.9% 1,000 ML IV SCH (05:30)
[2021-02-20] MEDS ORDERED: Acetaminophen 325 MG TAB PO SCH (05:45)
[2021-02-20] MEDS: Levothyroxine Sodium 125 MCG TAB PO SCH (05:48)
[2021-02-20] MEDS: DOPamine 400 MG/D5W 250 ML 250 ML IVPB SCH ×2 (05:49→23:09)
[2021-02-20 06:24] LABS: Band 1 % (5-11); Hemoglobin 7.8 g/dL (12.0-16.0); Hypochromia SLIGHT = 6-15 cells (100X) (0-5/hpf); Lymphocytes 17 % (21-51); MDiff Complete? YES; Mean Corpuscular HGB CONC 28.8 g/dL (32.0-36.0); Mean Corpuscular Hemoglobin 19.5 pg (27.0-31.0); Mean Corpuscular Volume 67.6 fL (78.0-98.0); Mean Platelet Volume 9.7 fL (7.4-10.4); Microcytosis SLIGHT = 6-15 cells (100X) (0-5/hpf); Neutrophil 82 % (42-75); Platelet Count 309 thou/uL (130-400); Platelet Morphology Comment Appears Adequate; RBC Distribution Width 17.8 % (11.5-14.5); Red Blood Cell (RBC) Count 3.99 mill/uL (4.20-5.40); White Blood Cell (WBC) Count 28.5 thou/uL (4.8-10.8)
[2021-02-20 06:30] LABS: Iron 9 ug/dL (50-170); Iron Binding Capacity, Total 361 mcg/dL (265-497)
[2021-02-20] MEDS: Atorvastatin Calcium 40 MG TAB PO SCH (08:45)
[2021-02-20] MEDS: Iron, Sodium Ferric Gluconate 250 MG in Sodium Chloride 0.9% 250 ML 250 ML IVPB SCH (09:26)
[2021-02-20] MEDS: cefTRIAXone\\ROCEPHIN 1 GM in Sodium Chloride 0.9% 100 ML IVPB SCH (11:53)
[2021-02-20 11:58] LABS: Anion Gap 15 mmol/L (10-20); BUN (Urea Nitrogen) 53 mg/dL (9.8-20.1); BUN/Creatinine Ratio 20.54; Calc. Creatinine Clearance 31 mL/min (70-130); Calcium 8.7 mg/dL (7.8-10.44); Carbon Dioxide 27 mmol/L (23-31); Chloride 97 mmol/L (98-107); Glucose 128 mg/dL (83-110); Phosphorus 4.1 mg/dL (2.3-4.7); Potassium 3.9 mmol/L (3.5-5.1); Sodium 135 mmol/L (136-145)
[2021-02-20] MEDS: Azithromycin 500 MG in Sodium Chloride 0.9% 250 ML 250 ML IVPB SCH (13:34)
[2021-02-20] MEDS ORDERED: Acetaminophen 325 MG TAB PO PRN (16:19)
[2021-02-20] MEDS: Cepastat Lozenges 1 LOZ PO PRN (21:06)
[2021-02-21 06:17] LABS: Albumin 3.2 g/dL (3.4-4.8); Anion Gap 15 mmol/L (10-20); BUN (Urea Nitrogen) 43 mg/dL (9.8-20.1); BUN/Creatinine Ratio 22.51; Calc. Creatinine Clearance 43 mL/min (70-130); Calcium 8.8 mg/dL (7.8-10.44); Carbon Dioxide 28 mmol/L (23-31); Chloride 98 mmol/L (98-107); Glucose 91 mg/dL (83-110); Phosphorus 3.5 mg/dL (2.3-4.7); Potassium 4.1 mmol/L (3.5-5.1); Sodium 137 mmol/L (136-145)
[2021-02-21] MEDS: Levothyroxine Sodium 125 MCG TAB PO SCH (06:34)
[2021-02-21 06:51] LABS: Hemoglobin 9.1 g/dL (12.0-16.0); Mean Corpuscular HGB CONC 29.2 g/dL (32.0-36.0); Mean Corpuscular Volume 68.5 fL (78.0-98.0); Mean Platelet Volume 9.7 fL (7.4-10.4); Platelet Count 289 thou/uL (130-400); RBC Distribution Width 18.1 % (11.5-14.5); Red Blood Cell (RBC) Count 4.54 mill/uL (4.20-5.40); White Blood Cell (WBC) Count 27.3 thou/uL (4.8-10.8)
[2021-02-21 06:52] LABS: Band 3 % (5-11); Eosinophils 4 % (0-10); Hypochromia SLIGHT = 6-15 cells (100X) (0-5/hpf); Lymphocytes 4 % (21-51); MDiff Complete? YES; Microcytosis SLIGHT = 6-15 cells (100X) (0-5/hpf); Monocytes 7 % (0-10); Neutrophil 79 % (42-75); Platelet Morphology Comment Appears Adequate; Reactive Lymphocytes 3 % (0-10)
[2021-02-21] MEDS: Atorvastatin Calcium 40 MG TAB PO SCH (09:03)
[2021-02-21] MEDS: Iron, Sodium Ferric Gluconate 250 MG in Sodium Chloride 0.9% 250 ML 250 ML IVPB SCH (09:03)
[2021-02-21] MEDS: Cepastat Lozenges 1 LOZ PO PRN (09:04)
[2021-02-21] MEDS: cefTRIAXone\\ROCEPHIN 1 GM in Sodium Chloride 0.9% 100 ML IVPB SCH (12:41)
[2021-02-21] MEDS ORDERED: Furosemide 40 MG/4 ML VIAL SLOW IVP SCH (12:45)
[2021-02-21] MEDS: Azithromycin 500 MG in Sodium Chloride 0.9% 250 ML 250 ML IVPB SCH (13:12)
[2021-02-21] MEDS ORDERED: DOPamine 400 MG/D5W 250 ML 250 ML IVPB SCH (16:00)
[2021-02-22] MEDS: Levothyroxine Sodium 125 MCG TAB PO SCH (05:29)
[2021-02-22 06:02] LABS: Albumin 3.3 g/dL (3.4-4.8); Anion Gap 12 mmol/L (10-20); BUN (Urea Nitrogen) 32 mg/dL (9.8-20.1); BUN/Creatinine Ratio 22.22; Calc. Creatinine Clearance 58 mL/min (70-130); Calcium 9.3 mg/dL (7.8-10.44); Carbon Dioxide 33 mmol/L (23-31); Chloride 99 mmol/L (98-107); Glucose 98 mg/dL (83-110); Potassium 3.8 mmol/L (3.5-5.1)
[2021-02-22 06:12] LABS: Sodium 140 mmol/L (136-145)
[2021-02-22] MEDS: Atorvastatin Calcium 40 MG TAB PO SCH (08:53)
[2021-02-22 08:59] LABS: Hemoglobin 9.4 g/dL (12.0-16.0); Mean Corpuscular HGB CONC 28.8 g/dL (32.0-36.0); Mean Corpuscular Hemoglobin 19.9 pg (27.0-31.0); Mean Corpuscular Volume 69.2 fL (78.0-98.0); Mean Platelet Volume 9.6 fL (7.4-10.4); Platelet Count 306 thou/uL (130-400); RBC Distribution Width 18.7 % (11.5-14.5); Red Blood Cell (RBC) Count 4.74 mill/uL (4.20-5.40); White Blood Cell (WBC) Count 23.4 thou/uL (4.8-10.8)
[2021-02-22] MEDS: Iron, Sodium Ferric Gluconate 250 MG in Sodium Chloride 0.9% 250 ML 250 ML IVPB SCH (09:35)
[2021-02-22] MEDS: DOPamine 400 MG/D5W 250 ML 250 ML IVPB SCH (10:05)
[2021-02-22 10:16] LABS: Band 4 % (5-11); Elliptocytes SLIGHT = 2-5 cells (100X) (0-1/hpf); Eosinophils 3 % (0-10); Hypochromia SLIGHT = 6-15 cells (100X) (0-5/hpf); Lymphocytes 4 % (21-51); MDiff Complete? YES; Microcytosis MODERATE=15-30 cells (100X) (0-5/hpf); Monocytes 3 % (0-10); Neutrophil 86 % (42-75); Ovalocytes SLIGHT = 2-5 cells (100X) (0-1/hpf); Platelet Morphology Comment Appears Adequate; Polychromasia SLIGHT = 2-3 cells (100X) (0-2/hpf)
[2021-02-22] MEDS: cefTRIAXone\\ROCEPHIN 1 GM in Sodium Chloride 0.9% 100 ML IVPB SCH (12:11)
[2021-02-22] MEDS ORDERED: Furosemide 20 MG TAB PO SCH (12:15)
[2021-02-22] MEDS: Azithromycin 500 MG in Sodium Chloride 0.9% 250 ML 250 ML IVPB SCH (13:54)
[2021-02-23] MEDS: Levothyroxine Sodium 125 MCG TAB PO SCH (05:43)
[2021-02-23 05:59] LABS: #Basophils 0.1 thou/uL (0.0-0.2); #Eosinphils 0.7 thou/uL (0.0-0.7); #Lymphocytes 1.6 thou/uL (1.20-3.40); #Monocytes 0.9 thou/uL (0.11-0.59); #Neutrophils 15.3 thou/uL (1.40-6.50); %Basophils 0.3 % (0.0-1.0); %Eosinophils 3.6 % (0.0-10.0); %Lymphocytes 8.6 % (21.0-51.0); %Monocytes 4.7 % (0.0-10.0); %Neutrophils 82.9 % (42.0-75.0); Hemoglobin 8.5 g/dL (12.0-16.0); Mean Corpuscular HGB CONC 28.2 g/dL (32.0-36.0); Mean Corpuscular Hemoglobin 19.8 pg (27.0-31.0); Mean Corpuscular Volume 70.4 fL (78.0-98.0); Mean Platelet Volume 9.7 fL (7.4-10.4); Platelet Count 308 thou/uL (130-400); RBC Distribution Width 18.5 % (11.5-14.5); White Blood Cell (WBC) Count 18.5 thou/uL (4.8-10.8)
[2021-02-23 06:25] LABS: Albumin 2.9 g/dL (3.4-4.8); Anion Gap 10 mmol/L (10-20); BUN (Urea Nitrogen) 18 mg/dL (9.8-20.1); BUN/Creatinine Ratio 16.36; Calc. Creatinine Clearance 75 mL/min (70-130); Calcium 8.8 mg/dL (7.8-10.44); Carbon Dioxide 34 mmol/L (23-31); Chloride 100 mmol/L (98-107); Glucose 100 mg/dL (83-110); Phosphorus 2.3 mg/dL (2.3-4.7); Potassium 4.1 mmol/L (3.5-5.1); Sodium 140 mmol/L (136-145)
[2021-02-23] MEDS: DOPamine 400 MG/D5W 250 ML 250 ML IVPB SCH (08:42)
[2021-02-23] MEDS: Iron, Sodium Ferric Gluconate 250 MG in Sodium Chloride 0.9% 250 ML 250 ML IVPB SCH (09:09)
[2021-02-23] MEDS: Atorvastatin Calcium 40 MG TAB PO SCH (09:17)
[2021-02-23] MEDS: Furosemide 20 MG TAB PO SCH (09:17)
[2021-02-23] MEDS ORDERED: Sodium Chloride 0.9% 10 ML ONE (10:12)
[2021-02-23] MEDS ORDERED: DOPamine 400 MG/D5W 250 ML 250 ML IVPB SCH (11:22)
[2021-02-23] MEDS: cefTRIAXone\\ROCEPHIN 1 GM in Sodium Chloride 0.9% 100 ML IVPB SCH (11:33)
[2021-02-23] MEDS: Azithromycin 500 MG in Sodium Chloride 0.9% 250 ML 250 ML IVPB SCH (15:07)
[2021-02-24] MEDS: Levothyroxine Sodium 125 MCG TAB PO SCH (04:49)
[2021-02-24] MEDS ORDERED: GUAIFENESIN SF SOLN 200 MG/10 ML UDCUP PO PRN (07:05)
[2021-02-24] MEDS ORDERED: HYDROcodone/Acetaminophen 5/325 mg Tablet PO PRN (07:05)
[2021-02-24] MEDS ORDERED: Bisacodyl 5 MG TAB PO PRN (07:05)
[2021-02-24] MEDS ORDERED: Sodium Chloride 0.65% Nasal 44 ML BOT EA NARE PRN (07:05)
[2021-02-24] MEDS ORDERED: hydrALAZINE 20 MG/ML VIAL SLOW IVP PRN (07:05)
[2021-02-24] MEDS ORDERED: Hydrocerin (Eucerin) Cream 120 gm Jar TOP PRN (07:05)
[2021-02-24] MEDS ORDERED: Senokot S 8.6-50 MG TAB PO PRN (07:05)
[2021-02-24] MEDS ORDERED: Loratadine 10 MG TAB PO PRN (07:05)
[2021-02-24] MEDS ORDERED: Melatonin 3 MG TAB PO PRN (07:05)
[2021-02-24] MEDS ORDERED: Artificial Tear Sol 15 ML BOT EA EYE PRN (07:05)
[2021-02-24] MEDS ORDERED: Loperamide HCl 2 MG CAP PO PRN (07:05)
[2021-02-24] MEDS ORDERED: Ondansetron ODT 4 MG TAB SL PRN (07:05)
[2021-02-24] MEDS ORDERED: Calcium Carbonate 500 MG ChewTAB PO PRN (07:05)
[2021-02-24] MEDS: Furosemide 20 MG TAB PO SCH (09:09)
[2021-02-24] MEDS: Iron, Sodium Ferric Gluconate 250 MG in Sodium Chloride 0.9% 250 ML 250 ML IVPB SCH (09:09)
[2021-02-24] MEDS: Atorvastatin Calcium 40 MG TAB PO SCH (09:09)
[2021-02-24] MEDS: cefTRIAXone\\ROCEPHIN 1 GM in Sodium Chloride 0.9% 100 ML IVPB SCH (11:27)
[2021-02-24] MEDS: Azithromycin 500 MG in Sodium Chloride 0.9% 250 ML 250 ML IVPB SCH (11:27)
[2021-02-24] MEDS ORDERED: Furosemide 20 MG TAB PO SCH (17:45)
[2021-02-24] MEDS ORDERED: Carvedilol 3.125 MG TAB PO SCH (18:00)
[2021-02-25 05:00] LABS: Anion Gap 11 mmol/L (10-20); BUN (Urea Nitrogen) 9 mg/dL (9.8-20.1); Calc. Creatinine Clearance 80 mL/min (70-130); Calcium 8.7 mg/dL (7.8-10.44); Carbon Dioxide 33 mmol/L (23-31); Chloride 100 mmol/L (98-107); Glucose 79 mg/dL (83-110); Potassium 3.5 mmol/L (3.5-5.1); Sodium 140 mmol/L (136-145)
[2021-02-25] MEDS: Levothyroxine Sodium 125 MCG TAB PO SCH (05:47)
[2021-02-25] MEDS: Atorvastatin Calcium 40 MG TAB PO SCH (09:11)
[2021-02-25] MEDS: Furosemide 20 MG TAB PO SCH ×2 (09:11→09:12)
[2021-02-25] MEDS: Carvedilol 3.125 MG TAB PO SCH ×2 (09:11→16:13)
[2021-02-25] MEDS ORDERED: Potassium Chloride 20 MEQ TAB PO SCH (11:45)
[2021-02-25] MEDS ORDERED: Furosemide 20 MG TAB PO SCH (14:00)
[2021-02-25 14:28] VITALS: BMI 36.5
[2021-02-25] MEDS: Cefdinir 300 MG CAP PO SCH (21:13)
[2021-02-26 04:18] LABS: #Basophils 0.1 thou/uL (0.0-0.2); #Eosinphils 0.5 thou/uL (0.0-0.7); #Lymphocytes 1.9 thou/uL (1.20-3.40); #Monocytes 0.8 thou/uL (0.11-0.59); #Neutrophils 10.9 thou/uL (1.40-6.50); %Basophils 0.5 % (0.0-1.0); %Eosinophils 3.3 % (0.0-10.0); %Lymphocytes 13.2 % (21.0-51.0); %Monocytes 5.6 % (0.0-10.0); %Neutrophils 77.4 % (42.0-75.0); Hemoglobin 7.8 g/dL (12.0-16.0); Mean Corpuscular HGB CONC 30.1 g/dL (32.0-36.0); Mean Corpuscular Hemoglobin 20.7 pg (27.0-31.0); Mean Corpuscular Volume 68.8 fL (78.0-98.0); Mean Platelet Volume 9.9 fL (7.4-10.4); Platelet Count 257 thou/uL (130-400); Red Blood Cell (RBC) Count 3.78 mill/uL (4.20-5.40)
[2021-02-26 04:35] LABS: Anion Gap 9 mmol/L (10-20); BUN (Urea Nitrogen) 8 mg/dL (9.8-20.1); Calc. Creatinine Clearance 69 mL/min (70-130); Calcium 8.6 mg/dL (7.8-10.44); Carbon Dioxide 37 mmol/L (23-31); Chloride 100 mmol/L (98-107); Glucose 87 mg/dL (83-110); Potassium 3.6 mmol/L (3.5-5.1); Sodium 142 mmol/L (136-145)
[2021-02-26] MEDS: Levothyroxine Sodium 125 MCG TAB PO SCH (05:39)
[2021-02-26] MEDS: Cefdinir 300 MG CAP PO SCH ×2 (09:26→20:03)
[2021-02-26] MEDS: Carvedilol 3.125 MG TAB PO SCH ×2 (09:26→17:01)
[2021-02-26] MEDS: Atorvastatin Calcium 40 MG TAB PO SCH (09:27)
[2021-02-26] MEDS: Furosemide 20 MG TAB PO SCH (09:27)
[2021-02-26] MEDS: Apixaban 2.5 MG TAB PO SCH (20:03)
[2021-02-27 04:50] LABS: Anion Gap 10 mmol/L (10-20); BUN (Urea Nitrogen) 8 mg/dL (9.8-20.1); Calc. Creatinine Clearance 69 mL/min (70-130); Calcium 8.9 mg/dL (7.8-10.44); Carbon Dioxide 37 mmol/L (23-31); Chloride 99 mmol/L (98-107); Glucose 91 mg/dL (83-110); Potassium 3.5 mmol/L (3.5-5.1); Sodium 142 mmol/L (136-145)
[2021-02-27] MEDS: Levothyroxine Sodium 125 MCG TAB PO SCH (05:12)
[2021-02-27 07:46] VITALS: TEMP 98.1
[2021-02-27] MEDS: Carvedilol 3.125 MG TAB PO SCH (08:19)
[2021-02-27] MEDS: Atorvastatin Calcium 40 MG TAB PO SCH (08:20)
[2021-02-27] MEDS: Apixaban 2.5 MG TAB PO SCH (08:20)
[2021-02-27] MEDS: Cefdinir 300 MG CAP PO SCH (08:20)
[2021-02-27] MEDS: Furosemide 20 MG TAB PO SCH (08:21)
[2021-02-27 12:59] VITALS: BP 136/62
== END 2021-02-27 12:52 | disposition home health service (06) | DRG 270 ==
LOC: CCL 06:16 → 2NO 08:23 → CCU 02-18 11:57 → NEURO 02-19 16:05 → 2NO 02-23 16:07
PROVIDERS: ADMIT Internal Medicine Cardiovascular Disease; ATTEND Internal Medicine
PROC: 0W9D00Z Drainage of Pericardial Cavity with Drainage Device, Open Approach (ICD-10-PCS; principal; 2021-02-18)
PROC: 5A09357 Assistance with Respiratory Ventilation, Less than 24 Consecutive Hours, Continuous Positive Airway Pressure (ICD-10-PCS; 2021-02-18)
PROC: 3E033XZ Introduction of Vasopressor into Peripheral Vein, Percutaneous Approach (ICD-10-PCS; 2021-02-18)
PROC: 4B02XTZ Measurement of Cardiac Defibrillator, External Approach (ICD-10-PCS; 2021-02-22)
DX: I31.3 Pericardial effusion (noninflammatory) (principal); J96.01 Acute respiratory failure with hypoxia; I50.23 Acute on chronic systolic (congestive) heart failure; R57.0 Cardiogenic shock; I13.0 Hypertensive heart and chronic kidney disease with heart failure and stage 1 through stage 4 chronic kidney disease, or unspecified chronic kidney disease; E87.1 Hypo-osmolality and hyponatremia; E87.2 Acidosis; I48.19 Other persistent atrial fibrillation; I42.8 Other cardiomyopathies; N17.9 Acute kidney failure, unspecified; Z20.822 Contact with and (suspected) exposure to COVID-19; I31.4 Cardiac tamponade; I34.0 Nonrheumatic mitral (valve) insufficiency; R00.1 Bradycardia, unspecified; K21.9 Gastro-esophageal reflux disease without esophagitis; Z96.659 Presence of unspecified artificial knee joint; E89.0 Postprocedural hypothyroidism; N18.30 Chronic kidney disease, stage 3 unspecified; E86.9 Volume depletion, unspecified; E66.01 Morbid (severe) obesity due to excess calories; D63.1 Anemia in chronic kidney disease; D72.829 Elevated white blood cell count, unspecified; D50.9 Iron deficiency anemia, unspecified; Z28.21 Immunization not carried out because of patient refusal; Z95.810 Presence of automatic (implantable) cardiac defibrillator; Z83.49 Family history of other endocrine, nutritional and metabolic diseases; Z82.49 Family history of ischemic heart disease and other diseases of the circulatory system; Z83.3 Family history of diabetes mellitus; Z90.49 Acquired absence of other specified parts of digestive tract; Z79.899 Other long term (current) drug therapy; Z79.01 Long term (current) use of anticoagulants; Z79.890 Hormone replacement therapy; Z68.36 Body mass index [BMI] 36.0-36.9, adult; Z01.812 Encounter for preprocedural laboratory examination
CPT/HCPCS: 36415; 36416; 36600; 71045; 80048; 80069; 81001; 82040; 82550; 82570; 82728; 82805; 83540; 83550; 83605; 83735; 83880; 84100; 84145; 84156; 84300; 84484; 84540; 85025; 85027; 85060; 85610; 85730; 86140; 86850; 86900; 86901; 87040; 87070; 87086; 87205; 93005; 93010; 93306; 94660; J0171; J0456; J0696; J1100; J1250; J1265; J1642; J1940; J2250; J2405; J2916; J3010; J3490; J7050; J7070; S0020; U0003; U0005

== ENCOUNTER 2022-05-24 15:52 | Inpatient (IN) | payer MEDICARE ==
[2022-05-24 18:13] LABS: #Lymphocytes 1.2 thou/uL (1.20-3.40); #Monocytes 0.4 thou/uL (0.11-0.59); #Neutrophils 4.8 thou/uL (1.40-6.50); %Basophils 0.4 % (0.0-1.0); %Eosinophils 0.7 % (0.0-10.0); %Lymphocytes 18.6 % (21.0-51.0); %Monocytes 6.7 % (0.0-10.0); %Neutrophils 73.6 % (42.0-75.0); Hemoglobin 11.9 g/dL (12.0-16.0); Mean Corpuscular HGB CONC 33.1 g/dL (32.0-36.0); Mean Platelet Volume 9.3 fL (7.4-10.4); Platelet Count 126 10x3/uL (130-400); RBC Distribution Width 18.3 % (11.5-14.5); Red Blood Cell (RBC) Count 3.39 mill/uL (4.20-5.40); White Blood Cell (WBC) Count 6.6 10x3/uL (4.8-10.8)
[2022-05-24 18:24] LABS: ALT (SGPT) 8 U/L (8-55); AST (SGOT) 21 U/L (5-34); Albumin 3.8 g/dL (3.4-4.8); Alkaline Phosphatase 76 U/L (40-110); Anion Gap 15 mmol/L (10-20); BUN (Urea Nitrogen) 23 mg/dL (9.8-20.1); Bilirubin, Total 1.2 mg/dL (0.2-1.2); Calc. Creatinine Clearance 0 mL/min (70-130); Calcium 8.9 mg/dL (7.8-10.44); Carbon Dioxide 26 mmol/L (23-31); Chloride 99 mmol/L (98-107); Estimated GFR 30; Globulin 3.3 g/dL (2.4-3.5); Glucose 74 mg/dL (83-110); Potassium 3.6 mmol/L (3.5-5.1); Protein, Total 7.1 g/dL (5.8-8.1); Sodium 136 mmol/L (136-145)
[2022-05-24] MEDS: Sodium Chloride 0.9% 1,000 ML IV SCH (20:51)
[2022-05-24] MEDS ORDERED: Acetaminophen 650 MG Suppository PR PRN (21:08)
[2022-05-24] MEDS ORDERED: Ondansetron PF 4 MG/2 ML Vial IVP PRN (21:08)
[2022-05-24] MEDS ORDERED: Ondansetron ODT 4 MG TAB PO PRN (21:08)
[2022-05-24] MEDS ORDERED: Pantoprazole 40 MG VIAL IVP SCH (21:30)
[2022-05-24] MEDS ORDERED: Pantoprazole 40 MG VIAL ONE (22:40)
[2022-05-25 05:18] LABS: #Lymphocytes 1.8 thou/uL (1.20-3.40); #Monocytes 0.5 thou/uL (0.11-0.59); #Neutrophils 2.5 thou/uL (1.40-6.50); %Basophils 0.4 % (0.0-1.0); %Eosinophils 0.6 % (0.0-10.0); %Lymphocytes 37.6 % (21.0-51.0); %Monocytes 9.5 % (0.0-10.0); %Neutrophils 51.9 % (42.0-75.0); Hemoglobin 9.9 g/dL (12.0-16.0); Mean Corpuscular HGB CONC 32.1 g/dL (32.0-36.0); Mean Corpuscular Hemoglobin 34.2 pg (27.0-31.0); Mean Platelet Volume 8.9 fL (7.4-10.4); Platelet Count 114 10x3/uL (130-400); RBC Distribution Width 18.1 % (11.5-14.5); White Blood Cell (WBC) Count 4.7 10x3/uL (4.8-10.8)
[2022-05-25 05:35] LABS: Anion Gap 10 mmol/L (10-20); BUN (Urea Nitrogen) 21 mg/dL (9.8-20.1); Calc. Creatinine Clearance 0 mL/min (70-130); Calcium 7.6 mg/dL (7.8-10.44); Carbon Dioxide 24 mmol/L (23-31); Chloride 105 mmol/L (98-107); Estimated GFR 43; Glucose 76 mg/dL (83-110); Potassium 3.6 mmol/L (3.5-5.1); Sodium 135 mmol/L (136-145)
[2022-05-25] MEDS: Sodium Chloride 0.9% 1,000 ML IV SCH (06:00)
[2022-05-25] MEDS ORDERED: Pantoprazole 40 MG VIAL ONE (09:00)
[2022-05-25 09:08] LABS: Bilirubin Negative (Negative); Blood, Urine Negative (Negative); Glucose, Urine (Dipstick) Normal (Negative); Ketone, Urine Negative (Negative); Leukocyte Negative Leu/uL (Negative); Nitrite Negative (Negative); Protein, Urine (Dipstick) 30 mg/dL (Neg-Trace); RBC/HPF None Seen HPF (0-3); Squamous Epithelial None Seen HPF (0-3); Urobilinogen Normal mg/dL (Less than 2); WBC/HPF None Seen HPF (0-3); pH, Urine 5.5 (5.0-9.0)
[2022-05-25 09:08] LABS: SARS-CoV-2 NAA Rapid Test DETECTED (NotDetected)
[2022-05-25 09:09] LABS: Clarity Turbid (Clear)
[2022-05-25] MEDS: Pantoprazole 40 MG VIAL IVP SCH (09:15)
[2022-05-25 09:19] LABS: Bacteria/HPF 4+ HPF (None Seen)
[2022-05-25 11:51] VITALS: BMI 24.3
[2022-05-25] MEDS ORDERED: Sertraline 25 MG TAB PO SCH (14:00)
[2022-05-25 17:56] LABS: Creatinine, Urine 207.19 mg/dL (47-110)
[2022-05-25] MEDS: Acetaminophen 325 MG TAB PO PRN (20:54)
[2022-05-26 04:56] LABS: #Eosinphils 0.1 thou/uL (0.0-0.7); #Monocytes 0.3 thou/uL (0.11-0.59); #Neutrophils 1.7 thou/uL (1.40-6.50); %Basophils 0.3 % (0.0-1.0); %Eosinophils 1.5 % (0.0-10.0); %Monocytes 7.1 % (0.0-10.0); %Neutrophils 42.1 % (42.0-75.0); Hemoglobin 10.4 g/dL (12.0-16.0); Mean Corpuscular HGB CONC 32.1 g/dL (32.0-36.0); Mean Corpuscular Hemoglobin 33.9 pg (27.0-31.0); Mean Platelet Volume 8.7 fL (7.4-10.4); Platelet Count 122 10x3/uL (130-400); RBC Distribution Width 17.7 % (11.5-14.5); Red Blood Cell (RBC) Count 3.07 mill/uL (4.20-5.40); White Blood Cell (WBC) Count 4.1 10x3/uL (4.8-10.8)
[2022-05-26 05:22] LABS: Anion Gap 10 mmol/L (10-20); BUN (Urea Nitrogen) 21 mg/dL (9.8-20.1); Calc. Creatinine Clearance 45 mL/min (70-130); Calcium 7.7 mg/dL (7.8-10.44); Carbon Dioxide 24 mmol/L (23-31); Chloride 105 mmol/L (98-107); Estimated GFR 45; Glucose 74 mg/dL (83-110); Magnesium 1.9 mg/dL (1.6-2.6); Potassium 3.5 mmol/L (3.5-5.1); Sodium 135 mmol/L (136-145)
[2022-05-26] MEDS ORDERED: Levothyroxine Sodium 125 MCG TAB PO SCH (06:00)
[2022-05-26] MEDS: Lactated Ringer's 1,000 ML IV SCH (06:22)
[2022-05-26] MEDS: Pantoprazole 40 MG VIAL IVP SCH (08:05)
[2022-05-26] MEDS: Acetaminophen 325 MG TAB PO PRN (08:06)
[2022-05-26] MEDS: Atorvastatin Calcium 40 MG TAB PO SCH (08:06)
[2022-05-26] MEDS: Sertraline 25 MG TAB PO SCH (08:06)
[2022-05-26] MEDS: Digoxin 0.125 MG TAB PO SCH (08:06)
[2022-05-26] MEDS ORDERED: Ergocalciferol 1.25 MG(50,000 UNITS) CAP PO SCH (09:00)
[2022-05-26] MEDS ORDERED: Non-Formulary Item 1 EACH (Levothyroxine Sodium [Levothyroxine] 125 MCG Capsule) PO SCH (09:00)
[2022-05-26] MEDS: Apixaban 5 MG TAB PO SCH (21:23)
[2022-05-27] MEDS: Levothyroxine Sodium 100 MCG TAB PO SCH (05:49)
[2022-05-27] MEDS: Lactated Ringer's 1,000 ML IV SCH (05:49)
[2022-05-27 07:22] LABS: Hemoglobin 9.7 g/dL (12.0-16.0); Mean Corpuscular HGB CONC 32.5 g/dL (32.0-36.0); Mean Platelet Volume 8.6 fL (7.4-10.4); Platelet Count 114 10x3/uL (130-400); RBC Distribution Width 17.8 % (11.5-14.5); Red Blood Cell (RBC) Count 2.77 mill/uL (4.20-5.40); White Blood Cell (WBC) Count 3.4 10x3/uL (4.8-10.8)
[2022-05-27 07:40] LABS: Albumin 2.4 g/dL (3.4-4.8); Anion Gap 9 mmol/L (10-20); BUN (Urea Nitrogen) 15 mg/dL (9.8-20.1); Calc. Creatinine Clearance 61 mL/min (70-130); Calcium 7.8 mg/dL (7.8-10.44); Carbon Dioxide 24 mmol/L (23-31); Chloride 108 mmol/L (98-107); Estimated GFR 65; Glucose 78 mg/dL (83-110); Iron 65 ug/dL (50-170); Iron Binding Capacity, Total 210 mcg/dL (265-497); Phosphorus 2.6 mg/dL (2.3-4.7); Potassium 3.8 mmol/L (3.5-5.1); Sodium 137 mmol/L (136-145)
[2022-05-27 08:41] LABS: Eosinophils 2 % (0-10); Lymphocytes 46 % (21-51); MDiff Complete? YES; Macrocytosis SLIGHT = 6-15 cells (100X) (0-5/hpf); Monocytes 5 % (0-10); Neutrophil 41 % (42-75); Ovalocytes SLIGHT = 2-5 cells (100X) (0-1/hpf); Platelet Morphology Comment Appears Decreased; Polychromasia SLIGHT = 2-3 cells (100X) (0-2/hpf); Reactive Lymphocytes 5 % (0-10)
[2022-05-27] MEDS: Digoxin 0.125 MG TAB PO SCH (09:20)
[2022-05-27] MEDS: Albumin 25% 25 GM/100 ML BOT IVPB SCH ×2 (09:20→17:21)
[2022-05-27] MEDS: Apixaban 5 MG TAB PO SCH ×2 (09:20→21:45)
[2022-05-27] MEDS: Atorvastatin Calcium 40 MG TAB PO SCH (09:21)
[2022-05-27] MEDS: Sertraline 25 MG TAB PO SCH (09:21)
[2022-05-27] MEDS: Pantoprazole 40 MG VIAL IVP SCH (09:21)
[2022-05-28] MEDS: Levothyroxine Sodium 100 MCG TAB PO SCH (06:46)
[2022-05-28] MEDS: Sertraline 25 MG TAB PO SCH (09:01)
[2022-05-28] MEDS: Atorvastatin Calcium 40 MG TAB PO SCH (09:01)
[2022-05-28] MEDS: Digoxin 0.125 MG TAB PO SCH (09:01)
[2022-05-28] MEDS: Pantoprazole 40 MG VIAL IVP SCH (09:01)
[2022-05-28] MEDS: Apixaban 5 MG TAB PO SCH (09:01)
[2022-05-28 10:12] LABS: Albumin 3.4 g/dL (3.4-4.8); Anion Gap 13 mmol/L (10-20); BUN (Urea Nitrogen) 9 mg/dL (9.8-20.1); BUN/Creatinine Ratio 9.57; Calc. Creatinine Clearance 60 mL/min (70-130); Calcium 8.3 mg/dL (7.8-10.44); Carbon Dioxide 21 mmol/L (23-31); Chloride 108 mmol/L (98-107); Estimated GFR 64; Glucose 91 mg/dL (83-110); Phosphorus 2.4 mg/dL (2.3-4.7); Potassium 3.8 mmol/L (3.5-5.1); Sodium 138 mmol/L (136-145)
[2022-05-28 17:20] VITALS: BP 131/79; TEMP 98.6
== END 2022-05-28 18:24 | disposition home or self-care (01) | DRG 312 ==
LOC: ERS 15:52 → 2SW 20:10 → ERHOLD 20:15 → 2SW 05-25 11:17 → OBSVTOIN 05-26 16:38
PROVIDERS: ADMIT Internal Medicine; ATTEND Internal Medicine
PROC: 8E0ZXY6 Isolation (ICD-10-PCS; principal; 2022-05-26)
DX: I95.2 Hypotension due to drugs (principal); U07.1 COVID-19; I42.8 Other cardiomyopathies; N17.9 Acute kidney failure, unspecified; K92.0 Hematemesis; I50.22 Chronic systolic (congestive) heart failure; E03.9 Hypothyroidism, unspecified; I48.91 Unspecified atrial fibrillation; D45 Polycythemia vera; N18.30 Chronic kidney disease, stage 3 unspecified; E55.9 Vitamin D deficiency, unspecified; I08.3 Combined rheumatic disorders of mitral, aortic and tricuspid valves; T46.5X5A Adverse effect of other antihypertensive drugs, initial encounter; E86.9 Volume depletion, unspecified; K21.9 Gastro-esophageal reflux disease without esophagitis; E88.09 Other disorders of plasma-protein metabolism, not elsewhere classified; Z79.899 Other long term (current) drug therapy; Z95.0 Presence of cardiac pacemaker; Z79.890 Hormone replacement therapy; Z79.01 Long term (current) use of anticoagulants; Z90.49 Acquired absence of other specified parts of digestive tract; Z98.890 Other specified postprocedural states
CPT/HCPCS: 36415; 71045; 80048; 80053; 80069; 81001; 82040; 82271; 82306; 82533; 82570; 82728; 83540; 83550; 83735; 84156; 84300; 84484; 84540; 85025; 86850; 86900; 86901; 93005; 93306; 96360; 96361; C9113; J7050; J7120; P9047; U0002

== ENCOUNTER 2022-07-13 11:30 | Inpatient (IN) | payer MEDICARE ==
[2022-07-13 14:44] LABS: Bilirubin 1+ (Negative); Blood, Urine Negative (Negative); Clarity Slightly Cloudy (Clear); Glucose, Urine (Dipstick) Normal (Negative); Ketone, Urine Negative (Negative); Leukocyte 25 (Negative); Nitrite Negative (Negative); Protein, Urine (Dipstick) 30 mg/dl (Neg-Trace); Specific Gravity, Urine 1.025 (1.005-1.030); Urobilinogen Normal mg/dL (Less than 2)
[2022-07-13 14:56] LABS: INR-International Normal Ratio 1.1; PTT 28.8 sec (22.0-33.0); Prothrombin Time 11.7 sec (9.5-12.1)
[2022-07-13 14:58] LABS: Hemoglobin 13.1 g/dL (12.0-15.5); Mean Corpuscular Volume 96.9 fl (81.6-98.3); Mean Platelet Volume 11.1 fl (7.4-10.4); Platelet Count 250 10x3/uL (150-450); RBC Distribution Width 16.9 % (11.5-14.5); Red Blood Cell (RBC) Count 4.23 10x6/uL (3.90-5.03); White Blood Cell (WBC) Count 12.2 10x3/uL (3.5-10.5)
[2022-07-13 15:23] LABS: ALT (SGPT) 14 U/L (8-55); AST (SGOT) 29 U/L (5-34); Albumin 4.3 g/dL (3.4-4.8); Alkaline Phosphatase 89 U/L (40-110); Anion Gap 20 mmol/L (10-20); BUN (Urea Nitrogen) 24 mg/dL (9.8-20.1); Calc. Creatinine Clearance 0 mL/min (70-130); Calcium 9.3 mg/dL (7.8-10.44); Carbon Dioxide 28 mmol/L (23-31); Chloride 94 mmol/L (98-107); Estimated GFR 34; Globulin 3.3 g/dL (2.4-3.5); Glucose 108 mg/dL (83-110); Potassium 3.1 mmol/L (3.5-5.1); Protein, Total 7.6 g/dL (5.8-8.1); Sodium 139 mmol/L (136-145)
[2022-07-18 16:06] VITALS: BMI 22.8
[2022-07-20 08:07] LABS: #Eosinphils 0.2 thou/uL (0.0-0.7); #Lymphocytes 1.8 thou/uL (1.20-3.40); #Monocytes 0.5 thou/uL (0.11-0.59); #Neutrophils 6.5 thou/uL (1.40-6.50); %Basophils 0.4 % (0.0-1.0); %Eosinophils 1.8 % (0.0-10.0); %Lymphocytes 20.3 % (21.0-51.0); %Monocytes 5.2 % (0.0-10.0); %Neutrophils 72.3 % (42.0-75.0); Mean Corpuscular HGB CONC 32.1 g/dL (32.0-36.0); Mean Corpuscular Hemoglobin 31.8 pg (27.0-31.0); Mean Platelet Volume 9.5 fL (7.4-10.4); Platelet Count 152 10x3/uL (130-400); RBC Distribution Width 16.3 % (11.5-14.5); Red Blood Cell (RBC) Count 3.78 mill/uL (4.20-5.40)
[2022-07-20 08:34] LABS: Anion Gap 15 mmol/L (10-20); BUN (Urea Nitrogen) 25 mg/dL (9.8-20.1); Calc. Creatinine Clearance 33 mL/min (70-130); Calcium 9.1 mg/dL (7.8-10.44); Carbon Dioxide 27 mmol/L (23-31); Chloride 97 mmol/L (98-107); Estimated GFR 36; Glucose 91 mg/dL (83-110); Potassium 3.1 mmol/L (3.5-5.1); Sodium 136 mmol/L (136-145)
[2022-07-20] MEDS ORDERED: Iopamidol 370 76% 100 ML VIAL ONE (08:39)
[2022-07-20] MEDS ORDERED: Protamine Sulfate 50 MG/5 ML VIAL ONE (08:40)
[2022-07-20] MEDS ORDERED: CEFAZOLIN 1 GM VIAL ONE (08:40)
[2022-07-20] MEDS ORDERED: Heparin 10,000 UNITS/ 10 ML VIAL ONE (08:40)
[2022-07-20] MEDS ORDERED: Ondansetron PF 4 MG/2 ML Vial ONE (09:46)
[2022-07-20] MEDS ORDERED: Lidocaine 1% PF 5 ML VIAL ONE (09:46)
[2022-07-20] MEDS ORDERED: Rocuronium Bromide 10 MG/ML (10ML VIAL) ONE (09:46)
[2022-07-20] MEDS ORDERED: Dexamethasone 20 MG/5 ML VIAL ONE (09:46)
[2022-07-20] MEDS ORDERED: PROPOFOL 200 MG/20 ML VIAL ONE (09:46)
[2022-07-20] MEDS ORDERED: SUGAMMADEX SODIUM 200 MG/2 ML VIAL ONE (09:51)
[2022-07-20] MEDS ORDERED: fentaNYL 50 mcg/mL 1 mL Vial ONE (09:51)
[2022-07-20] MEDS ORDERED: Acetaminophen/Codeine 30-300mg Tablet PO PRN ×2 (13:15)
[2022-07-20] MEDS ORDERED: DOPamine 400 MG/D5W 250 ML 250 ML IVPB SCH (18:45)
[2022-07-20] MEDS: Sodium Chloride 0.9% 500 ML IVPB PRN ×2 (19:02→23:39)
[2022-07-20] MEDS: Apixaban 5 MG TAB PO SCH (20:44)
[2022-07-20] MEDS ORDERED: Atorvastatin Calcium 40 MG TAB PO SCH (21:00)
[2022-07-20] MEDS ORDERED: Furosemide 20 MG TAB PO PRN (21:00)
[2022-07-20] MEDS ORDERED: Famotidine 20 MG TAB PO SCH (21:00)
[2022-07-21 05:07] LABS: Anion Gap 10 mmol/L (10-20); BUN (Urea Nitrogen) 22 mg/dL (9.8-20.1); Calc. Creatinine Clearance 40 mL/min (70-130); Calcium 7.8 mg/dL (7.8-10.44); Carbon Dioxide 24 mmol/L (23-31); Chloride 105 mmol/L (98-107); Estimated GFR 45; Glucose 105 mg/dL (83-110); Potassium 3.3 mmol/L (3.5-5.1); Sodium 136 mmol/L (136-145)
[2022-07-21] MEDS ORDERED: Levothyroxine Sodium 100 MCG TAB PO SCH (06:00)
[2022-07-21 07:46] VITALS: BP 102/54; TEMP 97.5
[2022-07-21] MEDS: Apixaban 5 MG TAB PO SCH (08:33)
[2022-07-21] MEDS ORDERED: Digoxin 0.125 MG TAB PO SCH (09:00)
[2022-07-21] MEDS ORDERED: Hydroxyurea 500 MG CAP PO SCH ×2 (09:00→21:00)
[2022-07-21] MEDS ORDERED: Carvedilol 3.125 MG TAB PO SCH (09:00)
[2022-07-21] MEDS ORDERED: Sertraline 25 MG TAB PO SCH (09:00)
[2022-07-21] MEDS ORDERED: Potassium Chloride 20 MEQ TAB PO SCH (09:30)
[2022-07-21] MEDS ORDERED: Sacubitril 24MG/Valsartan 26 MG TAB PO SCH (21:00)
[2022-07-22] MEDS ORDERED: Cholecalciferol 1,000 UNITS (25 MCG) TAB PO SCH (09:00)
== END 2022-07-21 11:30 | disposition home or self-care (01) | DRG 274 ==
LOC: SURG A 07-20 05:52 → 2NO 07-20 15:30
PROVIDERS: ADMIT Internal Medicine Cardiovascular Disease; ATTEND Internal Medicine Cardiovascular Disease
PROC: 02L73DK Occlusion of Left Atrial Appendage with Intraluminal Device, Percutaneous Approach (ICD-10-PCS; principal; 2022-07-20)
PROC: B24BZZ4 Ultrasonography of Heart with Aorta, Transesophageal (ICD-10-PCS; 2022-07-20)
DX: I48.0 Paroxysmal atrial fibrillation (principal); Z00.6 Encounter for examination for normal comparison and control in clinical research program; I50.22 Chronic systolic (congestive) heart failure; R29.6 Repeated falls; I42.9 Cardiomyopathy, unspecified; I42.8 Other cardiomyopathies; E03.9 Hypothyroidism, unspecified; K21.9 Gastro-esophageal reflux disease without esophagitis; R00.1 Bradycardia, unspecified; I11.0 Hypertensive heart disease with heart failure; Z96.659 Presence of unspecified artificial knee joint; Z95.810 Presence of automatic (implantable) cardiac defibrillator; Z91.81 History of falling; Z79.01 Long term (current) use of anticoagulants; Z79.899 Other long term (current) drug therapy; Z79.890 Hormone replacement therapy; Z82.49 Family history of ischemic heart disease and other diseases of the circulatory system; Z83.3 Family history of diabetes mellitus; Z90.49 Acquired absence of other specified parts of digestive tract; Z98.890 Other specified postprocedural states
CPT/HCPCS: 33340; 36415; 80048; 80053; 81003; 85025; 85027; 85347; 85610; 85730; 86850; 86900; 86901; 93005; 93306; 93312; C1759; C1760; C1894; J0690; J1100; J1644; J2405; J2704; J2720; J3010; J7030; Q9967

== ENCOUNTER 2023-03-09 06:20 | Day surgery (SDC) | payer MEDICARE ==
[2023-03-08 10:13] VITALS: BMI 24.4
[2023-03-09] MEDS ORDERED: Lidocaine 1% PF 5 ML VIAL ONE (06:43)
[2023-03-09] MEDS ORDERED: PROPOFOL 20 ML ONE ×3 (06:44→08:27)
[2023-03-09] MEDS ORDERED: Ketamine In 0.9 % NaCl 50 MG/5 ML SYRINGE ONE (06:44)
== END 2023-03-09 09:22 | disposition home or self-care (01) ==
LOC: SDC 06:20
PROVIDERS: ATTEND Internal Medicine
PROC: 0DB58ZX Excision of Esophagus, Via Natural or Artificial Opening Endoscopic, Diagnostic (ICD-10-PCS; principal; 2023-03-09)
PROC: 0DBK8ZZ Excision of Ascending Colon, Via Natural or Artificial Opening Endoscopic (ICD-10-PCS; 2023-03-09)
PROC: 0DBL8ZZ Excision of Transverse Colon, Via Natural or Artificial Opening Endoscopic (ICD-10-PCS; 2023-03-09)
PROC: 0DBH8ZZ Excision of Cecum, Via Natural or Artificial Opening Endoscopic (ICD-10-PCS; 2023-03-09)
DX: D12.0 Benign neoplasm of cecum (principal); D12.2 Benign neoplasm of ascending colon; D12.3 Benign neoplasm of transverse colon; K22.10 Ulcer of esophagus without bleeding; K64.8 Other hemorrhoids; K64.4 Residual hemorrhoidal skin tags; K57.30 Diverticulosis of large intestine without perforation or abscess without bleeding; D50.9 Iron deficiency anemia, unspecified; I48.91 Unspecified atrial fibrillation; I13.0 Hypertensive heart and chronic kidney disease with heart failure and stage 1 through stage 4 chronic kidney disease, or unspecified chronic kidney disease; I50.9 Heart failure, unspecified; N18.30 Chronic kidney disease, stage 3 unspecified; Z95.0 Presence of cardiac pacemaker; Z90.49 Acquired absence of other specified parts of digestive tract; Z95.818 Presence of other cardiac implants and grafts; Z79.899 Other long term (current) drug therapy
CPT/HCPCS: J2704; J3490

== ENCOUNTER 2023-03-09 21:28 | Inpatient (IN) | payer MEDICARE ==
[2023-03-09 22:13] LABS: #Basophils 0.1 thou/uL (0.0-0.2); #Eosinphils 0.2 thou/uL (0.0-0.7); #Monocytes 0.5 thou/uL (0.11-0.59); #Neutrophils 7.4 thou/uL (1.40-6.50); %Basophils 0.5 % (0.0-1.0); %Eosinophils 1.7 % (0.0-10.0); %Lymphocytes 18.8 % (21.0-51.0); %Monocytes 5.4 % (0.0-10.0); %Neutrophils 73.1 % (42.0-75.0); Hematocrit 37.4 % (36.0-47.0); Hemoglobin 11.7 g/dL (12.0-16.0); Mean Corpuscular HGB CONC 31.3 g/dL (32.0-36.0); Mean Corpuscular Hemoglobin 31.2 pg (27.0-31.0); Mean Corpuscular Volume 99.7 fl (78.0-98.0); Mean Platelet Volume 9.9 fL (7.4-10.4); Platelet Count 174 10x3/uL (130-400); Red Blood Cell (RBC) Count 3.75 mill/uL (4.20-5.40); White Blood Cell (WBC) Count 10.1 10x3/uL (4.8-10.8)
[2023-03-09 22:28] LABS: INR-International Normal Ratio 1.1; PTT 26.8 sec (22.9-36.1); Prothrombin Time 14.6 sec (12.0-14.7)
[2023-03-09 22:34] LABS: ALT (SGPT) 19 U/L (8-55); AST (SGOT) 18 U/L (5-34); Albumin 3.4 g/dL (3.4-4.8); Alkaline Phosphatase 80 U/L (40-110); Anion Gap 15 mmol/L (10-20); BUN (Urea Nitrogen) 29 mg/dL (9.8-20.1); Bilirubin, Total 0.7 mg/dL (0.2-1.2); Calc. Creatinine Clearance 0 mL/min (70-130); Calcium 8.6 mg/dL (7.8-10.44); Carbon Dioxide 21 mmol/L (23-31); Chloride 106 mmol/L (98-107); Estimated GFR 50; Globulin 2.9 g/dL (2.4-3.5); Glucose 157 mg/dL (83-110); Protein, Total 6.3 g/dL (5.8-8.1); Sodium 138 mmol/L (136-145)
[2023-03-09] MEDS ORDERED: Acetaminophen 650 MG Suppository PR PRN (23:34)
[2023-03-09] MEDS ORDERED: Ondansetron ODT 4 MG TAB PO PRN (23:34)
[2023-03-09] MEDS ORDERED: Acetaminophen 325 MG TAB PO PRN (23:34)
[2023-03-09] MEDS ORDERED: Ondansetron PF 4 MG/2 ML Vial IVP PRN (23:34)
[2023-03-09 23:43] LABS: Hematocrit 29.7 % (36.0-47.0); Hemoglobin 9.4 g/dL (12.0-16.0); Platelet Count 179 10x3/uL (130-400)
[2023-03-09] MEDS ORDERED: Sodium Chloride 0.9% 1,000 ML IV SCH (23:45)
[2023-03-10] MEDS ORDERED: PHENYLEPHRINE-NS 100 MCG/ML 10 ML SYRINGE ONE ×2 (00:43→01:01)
[2023-03-10] MEDS ORDERED: PROPOFOL 20 ML ONE ×2 (00:43→01:33)
[2023-03-10] MEDS ORDERED: PROPOFOL 200 MG/20 ML VIAL ONE (01:01)
[2023-03-10] MEDS ORDERED: EPINEPHrine 1 MG/10 ML Abboject SYRINGE ONE (01:25)
[2023-03-10 03:42] LABS: #Monocytes 0.4 thou/uL (0.11-0.59); #Neutrophils 7.3 thou/uL (1.40-6.50); %Basophils 0.3 % (0.0-1.0); %Eosinophils 0.4 % (0.0-10.0); %Lymphocytes 14.8 % (21.0-51.0); %Monocytes 4.5 % (0.0-10.0); %Neutrophils 79.3 % (42.0-75.0); Hematocrit 34.8 % (36.0-47.0); Hemoglobin 10.6 g/dL (12.0-16.0); Mean Corpuscular HGB CONC 30.5 g/dL (32.0-36.0); Mean Corpuscular Hemoglobin 31.3 pg (27.0-31.0); Mean Platelet Volume 10.9 fL (7.4-10.4); Platelet Count 154 10x3/uL (130-400); RBC Distribution Width 19.9 % (11.5-14.5); Red Blood Cell (RBC) Count 3.39 mill/uL (4.20-5.40); White Blood Cell (WBC) Count 9.2 10x3/uL (4.8-10.8)
[2023-03-10 04:08] LABS: Mean Corpuscular Volume 102.7 fl (78.0-98.0)
[2023-03-10 04:16] LABS: Anion Gap 15 mmol/L (10-20); BUN (Urea Nitrogen) 27 mg/dL (9.8-20.1); Calc. Creatinine Clearance 61 mL/min (70-130); Calcium 7.6 mg/dL (7.8-10.44); Carbon Dioxide 14 mmol/L (23-31); Chloride 114 mmol/L (98-107); Estimated GFR 65; Glucose 175 mg/dL (83-110); Potassium 4.6 mmol/L (3.5-5.1); Sodium 138 mmol/L (136-145)
[2023-03-10] MEDS: Carvedilol 3.125 MG TAB PO SCH (08:50)
[2023-03-10] MEDS: Digoxin 0.125 MG TAB PO SCH (08:50)
[2023-03-10] MEDS: Sertraline 25 MG TAB PO SCH (08:51)
[2023-03-10] MEDS: Furosemide 40 MG TAB PO SCH (08:51)
[2023-03-10] MEDS ORDERED: Furosemide 20 MG TAB PO SCH (09:00)
[2023-03-10] MEDS ORDERED: LEVOTHYROXINE SODIUM 150 MCG PO SCH (09:00)
[2023-03-10] MEDS ORDERED: Carvedilol 3.125 MG TAB PO SCH (09:00)
[2023-03-10] MEDS ORDERED: HYDROXYUREA 1000 MG PO SCH (09:00)
[2023-03-10] MEDS: Hydroxyurea 500 MG CAP PO SCH (10:48)
[2023-03-10 20:25] LABS: #Basophils 0.1 thou/uL (0.0-0.2); #Eosinphils 0.2 thou/uL (0.0-0.7); #Monocytes 0.6 thou/uL (0.11-0.59); #Neutrophils 7.4 thou/uL (1.40-6.50); %Basophils 0.5 % (0.0-1.0); %Eosinophils 1.4 % (0.0-10.0); %Monocytes 5.8 % (0.0-10.0); %Neutrophils 66.8 % (42.0-75.0); Mean Corpuscular Hemoglobin 31.7 pg (27.0-31.0); Mean Platelet Volume 9.8 fL (7.4-10.4); Platelet Count 124 10x3/uL (130-400); RBC Distribution Width 20.6 % (11.5-14.5); Red Blood Cell (RBC) Count 2.52 mill/uL (4.20-5.40); White Blood Cell (WBC) Count 11.1 10x3/uL (4.8-10.8)
[2023-03-10 20:35] LABS: Mean Corpuscular Volume 99.2 fl (78.0-98.0)
[2023-03-10] MEDS ORDERED: Sacubitril 24MG/Valsartan 26 MG TAB PO SCH (21:00)
[2023-03-10 21:20] LABS: Anisocytosis SLIGHT = 6-15 cells HPF (0-5); CellaVision Operator ID LAB.JMM; Macrocytosis SLIGHT = 6-15 cells HPF (0-5); Ovalocytes SLIGHT = 2-5 cells HPF (0-1); Platelet Adequacy Comment Platelets Normal; Polychromasia SLIGHT = 2-3 cells HPF (0-2)
[2023-03-10] MEDS: Atorvastatin Calcium 40 MG TAB PO SCH (21:20)
[2023-03-10] MEDS: Famotidine 20 MG TAB PO SCH (21:20)
[2023-03-10] MEDS ORDERED: Sodium Chloride 0.9% 500 ML IV SCH (23:45)
[2023-03-11 00:44] LABS: Hematocrit 21.4 % (36.0-47.0); Hemoglobin 6.8 g/dL (12.0-16.0)
[2023-03-11] MEDS ORDERED: Sodium Chloride 0.9% 500 ML IV SCH (03:45)
[2023-03-11 04:56] LABS: Hematocrit 24.8 % (36.0-47.0); Hemoglobin 7.8 g/dL (12.0-16.0)
[2023-03-11 05:04] LABS: Lactic Acid 1.1 mmol/L (0.5-2.2)
[2023-03-11] MEDS: Levothyroxine 150 MCG TAB PO SCH (05:17)
[2023-03-11 05:33] LABS: ALT (SGPT) 8 U/L (8-55); AST (SGOT) 9 U/L (5-34); Albumin 2.6 g/dL (3.4-4.8); Alkaline Phosphatase 51 U/L (40-110); Anion Gap 7 mmol/L (10-20); BUN (Urea Nitrogen) 23 mg/dL (9.8-20.1); Bilirubin, Total 1.4 mg/dL (0.2-1.2); Calc. Creatinine Clearance 59 mL/min (70-130); Calcium 7.7 mg/dL (7.8-10.44); Carbon Dioxide 26 mmol/L (23-31); Chloride 110 mmol/L (98-107); Estimated GFR 59; Glucose 99 mg/dL (83-110); Potassium 3.6 mmol/L (3.5-5.1); Protein, Total 4.6 g/dL (5.8-8.1); Sodium 139 mmol/L (136-145)
[2023-03-11 09:22] LABS: #Eosinphils 0.2 thou/uL (0.0-0.7); #Monocytes 0.5 thou/uL (0.11-0.59); #Neutrophils 4.7 thou/uL (1.40-6.50); %Basophils 0.5 % (0.0-1.0); %Eosinophils 2.2 % (0.0-10.0); %Lymphocytes 33.3 % (21.0-51.0); %Monocytes 6.2 % (0.0-10.0); %Neutrophils 57.3 % (42.0-75.0); Hematocrit 24.3 % (36.0-47.0); Hemoglobin 7.8 g/dL (12.0-16.0); Mean Corpuscular HGB CONC 32.1 g/dL (32.0-36.0); Mean Corpuscular Hemoglobin 31.1 pg (27.0-31.0); Mean Corpuscular Volume 96.8 fl (78.0-98.0); Mean Platelet Volume 10.5 fL (7.4-10.4); Platelet Count 116 10x3/uL (130-400); RBC Distribution Width 22.1 % (11.5-14.5); Red Blood Cell (RBC) Count 2.51 mill/uL (4.20-5.40); White Blood Cell (WBC) Count 8.2 10x3/uL (4.8-10.8)
[2023-03-11] MEDS: Digoxin 0.125 MG TAB PO SCH (09:39)
[2023-03-11] MEDS: Sertraline 25 MG TAB PO SCH (09:40)
[2023-03-11] MEDS: Furosemide 40 MG TAB PO SCH (09:41)
[2023-03-11] MEDS: Carvedilol 3.125 MG TAB PO SCH (09:44)
[2023-03-11] MEDS: Hydroxyurea 500 MG CAP PO SCH (10:11)
[2023-03-11] MEDS: Famotidine 20 MG TAB PO SCH (21:46)
[2023-03-11] MEDS: Atorvastatin Calcium 40 MG TAB PO SCH (21:46)
[2023-03-11 22:23] LABS: #Eosinphils 0.2 thou/uL (0.0-0.7); #Monocytes 0.5 thou/uL (0.11-0.59); #Neutrophils 5.8 thou/uL (1.40-6.50); %Basophils 0.3 % (0.0-1.0); %Eosinophils 2.1 % (0.0-10.0); %Lymphocytes 26.2 % (21.0-51.0); %Neutrophils 64.6 % (42.0-75.0); Hematocrit 22.8 % (36.0-47.0); Hemoglobin 7.3 g/dL (12.0-16.0); Mean Corpuscular Hemoglobin 31.1 pg (27.0-31.0); Mean Platelet Volume 10.2 fL (7.4-10.4); Platelet Count 114 10x3/uL (130-400); RBC Distribution Width 22.4 % (11.5-14.5); Red Blood Cell (RBC) Count 2.35 mill/uL (4.20-5.40)
[2023-03-12] MEDS: Levothyroxine 150 MCG TAB PO SCH (06:13)
[2023-03-12 08:28] LABS: #Eosinphils 0.1 thou/uL (0.0-0.7); #Monocytes 0.4 thou/uL (0.11-0.59); #Neutrophils 4.2 thou/uL (1.40-6.50); %Basophils 0.4 % (0.0-1.0); %Eosinophils 1.9 % (0.0-10.0); %Lymphocytes 30.8 % (21.0-51.0); %Monocytes 5.8 % (0.0-10.0); %Neutrophils 60.7 % (42.0-75.0); Hematocrit 24.5 % (36.0-47.0); Hemoglobin 7.6 g/dL (12.0-16.0); Mean Corpuscular Hemoglobin 31.8 pg (27.0-31.0); Mean Platelet Volume 9.6 fL (7.4-10.4); Platelet Count 119 10x3/uL (130-400); RBC Distribution Width 22.2 % (11.5-14.5); Red Blood Cell (RBC) Count 2.39 mill/uL (4.20-5.40); White Blood Cell (WBC) Count 6.9 10x3/uL (4.8-10.8)
[2023-03-12 08:35] LABS: Mean Corpuscular Volume 102.5 fl (78.0-98.0)
[2023-03-12] MEDS: Carvedilol 3.125 MG TAB PO SCH (08:38)
[2023-03-12] MEDS: Sertraline 25 MG TAB PO SCH (08:38)
[2023-03-12] MEDS: Digoxin 0.125 MG TAB PO SCH (08:38)
[2023-03-12] MEDS: Hydroxyurea 500 MG CAP PO SCH (08:39)
[2023-03-12 09:05] LABS: Anisocytosis SLIGHT = 6-15 cells HPF (0-5); Burr Cells SLIGHT = 2-5 cells HPF (0-1); CellaVision Operator ID LAB.CMB; Large Platelets 2.9 % (0-5); Macrocytosis SLIGHT = 6-15 cells HPF (0-5); Ovalocytes SLIGHT = 2-5 cells HPF (0-1); Platelet Adequacy Comment Platelets Decreased; Polychromasia SLIGHT = 2-3 cells HPF (0-2)
[2023-03-12 12:15] VITALS: BP 113/59; TEMP 97.2
== END 2023-03-12 15:59 | disposition home or self-care (01) | DRG 920 ==
LOC: ERS 21:28 → SDC/OP 03-10 00:56 → IMCU/EMU 03-10 02:36 → 2NO 03-10 14:58 → OBSVTOIN 03-11 12:24
PROVIDERS: ADMIT Student in an Organized Health Care Education/Training Program; ATTEND Internal Medicine Critical Care Medicine
PROC: 0W3P8ZZ Control Bleeding in Gastrointestinal Tract, Via Natural or Artificial Opening Endoscopic (ICD-10-PCS; principal; 2023-03-10)
PROC: 30233N1 Transfusion of Nonautologous Red Blood Cells into Peripheral Vein, Percutaneous Approach (ICD-10-PCS; 2023-03-10)
PROC: 3E033XZ Introduction of Vasopressor into Peripheral Vein, Percutaneous Approach (ICD-10-PCS; 2023-03-10)
DX: K91.840 Postprocedural hemorrhage of a digestive system organ or structure following a digestive system procedure (principal); D62 Acute posthemorrhagic anemia; K62.5 Hemorrhage of anus and rectum; K63.3 Ulcer of intestine; I48.91 Unspecified atrial fibrillation; E03.9 Hypothyroidism, unspecified; Y83.8 Other surgical procedures as the cause of abnormal reaction of the patient, or of later complication, without mention of misadventure at the time of the procedure; F41.9 Anxiety disorder, unspecified; I95.9 Hypotension, unspecified; I25.10 Atherosclerotic heart disease of native coronary artery without angina pectoris; K64.4 Residual hemorrhoidal skin tags; K64.8 Other hemorrhoids; E05.00 Thyrotoxicosis with diffuse goiter without thyrotoxic crisis or storm; Z79.899 Other long term (current) drug therapy; Z79.82 Long term (current) use of aspirin; Z79.890 Hormone replacement therapy; Z98.890 Other specified postprocedural states; Z95.0 Presence of cardiac pacemaker; Z90.49 Acquired absence of other specified parts of digestive tract; Z90.89 Acquired absence of other organs
CPT/HCPCS: 36415; 36430; 80048; 80053; 83605; 85025; 85610; 85730; 86850; 86900; 86901; 88305; 94760; 96360; 96361; G0378; J0171; J2704; J3490; J7030; J7050; P9016; Q0162

== ENCOUNTER 2023-09-08 13:32 | Inpatient (IN) | payer MEDICARE, OTHER ==
[2023-09-08] MEDS ORDERED: Morphine 2 MG/ML VIAL ONE (13:59)
[2023-09-08 14:09] LABS: Hematocrit 42.1 % (36.0-47.0); Hemoglobin 13.7 g/dL (12.0-16.0); Mean Corpuscular HGB CONC 32.5 g/dL (32.0-36.0); Mean Corpuscular Hemoglobin 30.6 pg (27.0-31.0); Mean Corpuscular Volume 94.2 fL (78.0-98.0); Mean Platelet Volume 10.2 fL (7.4-10.4); Platelet Count 363 10x3/uL (130-400); RBC Distribution Width 18.7 % (11.5-14.5); Red Blood Cell (RBC) Count 4.47 mill/uL (4.20-5.40)
[2023-09-08 14:27] LABS: ALT (SGPT) Less than 5 U/L (8-55); AST (SGOT) 11 U/L (5-34); Albumin 2.8 g/dL (3.4-4.8); Alkaline Phosphatase 91 U/L (40-110); Anion Gap 15 mmol/L (10-20); BUN (Urea Nitrogen) 17 mg/dL (9.8-20.1); Bilirubin, Total 1.3 mg/dL (0.2-1.2); CK (CPK) 23 U/L (29-168); Calc. Creatinine Clearance 0 mL/min (70-130); Calcium 9.3 mg/dL (7.8-10.44); Carbon Dioxide 22 mmol/L (23-31); Chloride 101 mmol/L (98-107); Estimated GFR 44; Globulin 4.2 g/dL (2.4-3.5); Glucose 115 mg/dL (83-110); Potassium 3.8 mmol/L (3.5-5.1); Sodium 134 mmol/L (136-145)
[2023-09-08] MEDS ORDERED: Bupivacaine 0.5% 10 ML VIAL ONE (14:41)
[2023-09-08 14:45] LABS: Anisocytosis SLIGHT = 6-15 cells HPF (0-5); Band 2 % (5-11); Lymphocytes 5 % (21-51); Monocytes 2 % (0-10); Neutrophil 91 % (42-75); Ovalocytes SLIGHT = 2-5 cells HPF (0-1); Platelet Adequacy Comment Platelets Normal; Polychromasia SLIGHT = 2-3 cells HPF (0-2); Tear Drops SLIGHT = 2-5 cells HPF (0-1); Vacuoles MODERATE
[2023-09-08] MEDS ORDERED: Cefepime 2 GM VIAL ONE (16:03)
[2023-09-08] MEDS ORDERED: Sodium Chloride 0.9% 100 ML ONE (16:03)
[2023-09-08] MEDS ORDERED: Vancomycin 1 GM/200 ML (FROZEN) BAG ONE (16:41)
[2023-09-08 16:54] LABS: Lactic Acid 1.5 mmol/L (0.5-2.2)
[2023-09-08 17:38] VITALS: BMI 23.6
[2023-09-08 17:44] LABS: Bacteria/HPF None Seen HPF (None Seen); Bilirubin Negative (Negative); Blood, Urine Negative (Negative); CAUTI Indications for Culture Dysuria,urgency,freq; Clarity Turbid (Clear); Glucose, Urine (Dipstick) Normal (Negative); Ketone, Urine Trace mg/dL (Negative); Leukocyte Negative Leu/uL (Negative); Nitrite Negative (Negative); Protein, Urine (Dipstick) 30 mg/dL (Neg-Trace); Specific Gravity, Urine 1.028 (1.002-1.036); pH, Urine 5.5 (5.0-9.0)
[2023-09-08 17:59] LABS: Calcium Oxalate Crystals Rare HPF (None Seen); Squamous Epithelial 0-3 HPF (0-3)
[2023-09-08] MEDS ORDERED: Morphine 2 MG/ML VIAL SLOW IVP PRN (18:02)
[2023-09-08 18:04] LABS: Urine Culture Reflex Yes Yes
[2023-09-08] MEDS ORDERED: Acetaminophen 650 MG Suppository PR PRN (18:04)
[2023-09-08] MEDS ORDERED: Senokot S 8.6-50 MG TAB PO PRN (18:04)
[2023-09-08] MEDS ORDERED: Calcium Carbonate 500 MG ChewTAB PO PRN (18:04)
[2023-09-08] MEDS ORDERED: Ondansetron ODT 4 MG TAB PO PRN (18:04)
[2023-09-08] MEDS ORDERED: Ondansetron PF 4 MG/2 ML Vial IVP PRN (18:04)
[2023-09-08] MEDS: Sodium Chloride 0.9% 1,000 ML IV SCH ×2 (18:26→22:14)
[2023-09-08] MEDS: Vancomycin HCl 750 MG in Sodium Chloride 0.9% 250 ML 250 ML IVPB SCH (18:31)
[2023-09-08] MEDS ORDERED: Vancomycin 1 GM in Sodium Chloride 0.9% 250 ML 300 ML IVPB SCH (21:00)
[2023-09-08] MEDS: Atorvastatin Calcium 40 MG TAB PO SCH (21:00)
[2023-09-08] MEDS: Acetaminophen 325 MG TAB PO PRN (22:11)
[2023-09-08] MEDS: Sacubitril 24MG/Valsartan 26 MG TAB PO SCH (22:12)
[2023-09-08] MEDS: Pantoprazole DR 40 MG TAB PO SCH (22:13)
[2023-09-08 22:56] LABS: Creatinine, Urine 344.37 mg/dL (47-110)
[2023-09-08 22:58] LABS: Microalbumin Urine 1.5 mg/dL (0.5-50.0); Microalbumin/Creat Ratio 4.4 mg/g (Less than 30)
[2023-09-08] MEDS: Albumin 25% 25 GM (100 mL) BOT IVPB SCH (23:30)
[2023-09-09] MEDS: Cefepime 1 GM in Sodium Chloride 0.9% 100 ML IVPB SCH (04:45)
[2023-09-09] MEDS: Levothyroxine 150 MCG TAB PO SCH (05:02)
[2023-09-09 06:07] LABS: #Basophils 0.11 10x3/uL (0.0-0.2); %Basophils 0.6 % (0.0-1.0); %Eosinophils 2.9 % (0.0-10.0); %Lymphocytes 8.8 % (21.0-51.0); %Monocytes 3.9 % (0.0-10.0); %Neutrophils 82.2 % (42.0-75.0); Hemoglobin 11.9 g/dL (12.0-16.0); Mean Corpuscular HGB CONC 31.3 g/dL (32.0-36.0); Mean Corpuscular Hemoglobin 29.8 pg (27.0-31.0); Mean Corpuscular Volume 95.2 fL (78.0-98.0); Mean Platelet Volume 10.8 fL (7.4-10.4); Platelet Count 349 10x3/uL (130-400); RBC Distribution Width 18.7 % (11.5-14.5); Red Blood Cell (RBC) Count 3.99 mill/uL (4.20-5.40)
[2023-09-09 06:29] LABS: Anion Gap 14 mmol/L (10-20); BUN (Urea Nitrogen) 17 mg/dL (9.8-20.1); Calc. Creatinine Clearance 48 mL/min (70-130); Calcium 8.7 mg/dL (7.8-10.44); Carbon Dioxide 22 mmol/L (23-31); Chloride 106 mmol/L (98-107); Estimated GFR 51; Glucose 79 mg/dL (83-110); Potassium 3.5 mmol/L (3.5-5.1); Sodium 138 mmol/L (136-145); Vancomycin, Random 19.4 ug/mL (See Comment)
[2023-09-09] MEDS ORDERED: EPINEPHrine 1 MG/ML VIAL ONE (07:33)
[2023-09-09] MEDS ORDERED: Bupivacaine PF 0.5% 30 ML VIAL ONE (07:33)
[2023-09-09] MEDS ORDERED: Vancomycin 1 GM VIAL ONE (07:33)
[2023-09-09] MEDS ORDERED: Lidocaine 1% PF 5 ML VIAL ONE (08:11)
[2023-09-09] MEDS ORDERED: PROPOFOL 20 ML ONE (08:11)
[2023-09-09] MEDS ORDERED: Rocuronium Bromide 10 MG/ML (10ML VIAL) ONE (08:11)
[2023-09-09] MEDS ORDERED: Ondansetron PF 4 MG/2 ML Vial ONE (08:11)
[2023-09-09] MEDS ORDERED: PHENYLEPHRINE-NS 100 MCG/ML 10 ML SYRINGE ONE (08:35)
[2023-09-09] MEDS ORDERED: SUGAMMADEX SODIUM 200 MG/2 ML VIAL ONE (08:35)
[2023-09-09] MEDS ORDERED: fentaNYL PF 100 MCG/2 ML SYRINGE ONE (09:24)
[2023-09-09] MEDS ORDERED: HYDROcodone/Acetaminophen 10/325 mg Tablet PO PRN ×2 (09:31)
[2023-09-09] MEDS ORDERED: Communication Order-Pharmacy FS SCH (09:45)
[2023-09-09] MEDS: Sertraline 25 MG TAB PO SCH (10:13)
[2023-09-09] MEDS: Carvedilol 3.125 MG TAB PO SCH (10:14)
[2023-09-09] MEDS: Digoxin 0.125 MG TAB PO SCH (10:14)
[2023-09-09] MEDS: Sacubitril 24MG/Valsartan 26 MG TAB PO SCH (10:14)
[2023-09-09] MEDS: Morphine 4 MG/ML VIAL SLOW IVP PRN (10:17)
[2023-09-09] MEDS: Vancomycin 1 GM in Premix 1 BAG IVPB SCH (16:47)
[2023-09-09] MEDS: Aspirin 81 mg Enteric Coated Tablet PO SCH (20:05)
[2023-09-10 07:24] LABS: #Basophils 0.08 10x3/uL (0.0-0.2); %Basophils 0.6 % (0.0-1.0); %Lymphocytes 14.2 % (21.0-51.0); %Monocytes 4.3 % (0.0-10.0); %Neutrophils 74.2 % (42.0-75.0); Hematocrit 35.8 % (36.0-47.0); Hemoglobin 10.8 g/dL (12.0-16.0); Mean Corpuscular HGB CONC 30.2 g/dL (32.0-36.0); Mean Corpuscular Hemoglobin 29.6 pg (27.0-31.0); Mean Corpuscular Volume 98.1 fL (78.0-98.0); Mean Platelet Volume 10.2 fL (7.4-10.4); Platelet Count 323 10x3/uL (130-400); RBC Distribution Width 18.9 % (11.5-14.5); Red Blood Cell (RBC) Count 3.65 mill/uL (4.20-5.40)
[2023-09-10 07:44] LABS: ALT (SGPT) Less than 5 U/L (8-55); AST (SGOT) 15 U/L (5-34); Albumin 2.8 g/dL (3.4-4.8); Alkaline Phosphatase 82 U/L (40-110); Anion Gap 13 mmol/L (10-20); BUN (Urea Nitrogen) 12 mg/dL (9.8-20.1); Bilirubin, Total 0.5 mg/dL (0.2-1.2); Calc. Creatinine Clearance 59 mL/min (70-130); Calcium 8.5 mg/dL (7.8-10.44); Carbon Dioxide 18 mmol/L (23-31); Chloride 110 mmol/L (98-107); Estimated GFR 66; Globulin 2.8 g/dL (2.4-3.5); Glucose 81 mg/dL (83-110); Potassium 3.9 mmol/L (3.5-5.1); Protein, Total 5.6 g/dL (5.8-8.1); Sodium 137 mmol/L (136-145)
[2023-09-10] MEDS: Sodium Bicarbonate Tab 325 MG TAB PO SCH (09:05)
[2023-09-10] MEDS: Sulfameth/Trimethoprim DS 800-160mg TAB PO SCH (20:28)
[2023-09-11 07:00] LABS: Albumin 2.6 g/dL (3.4-4.8); Anion Gap 11 mmol/L (10-20); BUN (Urea Nitrogen) 10 mg/dL (9.8-20.1); BUN/Creatinine Ratio 11.49; Calc. Creatinine Clearance 62 mL/min (70-130); Calcium 8.5 mg/dL (7.8-10.44); Carbon Dioxide 22 mmol/L (23-31); Chloride 109 mmol/L (98-107); Estimated GFR 69; Glucose 91 mg/dL (83-110); Phosphorus 2.4 mg/dL (2.3-4.7); Potassium 3.6 mmol/L (3.5-5.1); Sodium 138 mmol/L (136-145)
[2023-09-11] MEDS: Carvedilol 3.125 MG TAB PO SCH (08:46)
[2023-09-12] MEDS: Doxycycline 100 MG CAP PO SCH (21:55)
[2023-09-13 12:12] VITALS: BP 106/63; TEMP 98
== END 2023-09-13 16:07 | disposition home health service (06) | DRG 559 ==
LOC: ERS 13:32 → SJJU 16:02
PROVIDERS: ADMIT Internal Medicine; ATTEND Internal Medicine
PROC: 3E03329 Introduction of Other Anti-infective into Peripheral Vein, Percutaneous Approach (ICD-10-PCS; 2023-09-08)
PROC: 0J9M0ZZ Drainage of Left Upper Leg Subcutaneous Tissue and Fascia, Open Approach (ICD-10-PCS; principal; 2023-09-09)
PROC: 30233J1 Transfusion of Nonautologous Serum Albumin into Peripheral Vein, Percutaneous Approach (ICD-10-PCS; 2023-09-09)
DX: T84.52XA Infection and inflammatory reaction due to internal left hip prosthesis, initial encounter (principal); A41.51 Sepsis due to Escherichia coli [E. coli]; I13.0 Hypertensive heart and chronic kidney disease with heart failure and stage 1 through stage 4 chronic kidney disease, or unspecified chronic kidney disease; L02.416 Cutaneous abscess of left lower limb; I48.20 Chronic atrial fibrillation, unspecified; I50.42 Chronic combined systolic (congestive) and diastolic (congestive) heart failure; I25.10 Atherosclerotic heart disease of native coronary artery without angina pectoris; E78.5 Hyperlipidemia, unspecified; I95.1 Orthostatic hypotension; N18.30 Chronic kidney disease, stage 3 unspecified; E05.00 Thyrotoxicosis with diffuse goiter without thyrotoxic crisis or storm; E88.09 Other disorders of plasma-protein metabolism, not elsewhere classified; E03.9 Hypothyroidism, unspecified; E55.9 Vitamin D deficiency, unspecified; W06.XXXA Fall from bed, initial encounter; Z79.899 Other long term (current) drug therapy; Z79.82 Long term (current) use of aspirin; Z79.890 Hormone replacement therapy; Z95.0 Presence of cardiac pacemaker; Z90.49 Acquired absence of other specified parts of digestive tract; Z98.890 Other specified postprocedural states; Z87.81 Personal history of (healed) traumatic fracture; Y92.042 Bedroom in boarding-house as the place of occurrence of the external cause
CPT/HCPCS: 36415; 36416; 80048; 80053; 80069; 80202; 81001; 82043; 82550; 83605; 85025; 87040; 87070; 87077; 87086; 87186; 87205; J0171; J0665; J0692; J2270; J2272; J2405; J2704; J3370; J3370-JW; J3490; J7050; P9047

== ENCOUNTER 2024-01-08 12:33 | Outpatient (CLI) | payer MEDICARE ==
[2024-01-08 14:21] LABS: Hematocrit 50.5 % (36.0-47.0); Hemoglobin 15.2 g/dL (12.0-16.0); Mean Corpuscular HGB CONC 30.1 g/dL (32.0-36.0); Mean Corpuscular Volume 79.8 fL (78.0-98.0); Platelet Count 427 10x3/uL (130-400); RBC Distribution Width 20.8 % (11.5-14.5); Red Blood Cell (RBC) Count 6.33 mill/uL (4.20-5.40)
[2024-01-08 14:32] LABS: INR-International Normal Ratio 1.1; PTT 31.3 sec (22.9-36.1); Prothrombin Time 14.5 sec (12.0-14.7)
[2024-01-08 14:56] LABS: Anion Gap 16 mmol/L (10-20); BUN (Urea Nitrogen) 11 mg/dL (9.8-20.1); Calc. Creatinine Clearance 0 mL/min (70-130); Calcium 9.1 mg/dL (7.8-10.44); Carbon Dioxide 30 mmol/L (23-31); Chloride 93 mmol/L (98-107); Estimated GFR 50; Glucose 110 mg/dL (83-110); Potassium 3.1 mmol/L (3.5-5.1); Sodium 136 mmol/L (136-145)
[2024-01-08 14:58] LABS: Eosinophils 6 % (0-10); Lymphocytes 5 % (21-51); Monocytes 5 % (0-10); Neutrophil 78 % (42-75); Platelet Adequacy Comment Platelets Increased; Reactive Lymphocytes 5 % (0-10)
== END 2024-01-08 12:34 | disposition home or self-care (01) ==
LOC: LABBT 12:33
PROVIDERS: ATTEND Internal Medicine Cardiovascular Disease
DX: Z01.812 Encounter for preprocedural laboratory examination (principal); I48.0 Paroxysmal atrial fibrillation
CPT/HCPCS: 80048; 85025; 85610; 85730

== ENCOUNTER 2024-01-10 12:41 | Emergency (ER) | payer MEDICARE ==
[~2024-01-10 12:41] MED LIST: Iopamidol-370 76% 500 ML MDV (1 ML CHARGE) ONE
[2024-01-10 14:49] LABS: #Basophils 0.11 10x3/uL (0.0-0.2); %Basophils 0.6 % (0.0-1.0); %Eosinophils 2.8 % (0.0-10.0); %Lymphocytes 13.9 % (21.0-51.0); %Monocytes 4.6 % (0.0-10.0); %Neutrophils 77.4 % (42.0-75.0); Hematocrit 51.2 % (36.0-47.0); Hemoglobin 15.1 g/dL (12.0-16.0); Mean Corpuscular HGB CONC 29.5 g/dL (32.0-36.0); Mean Corpuscular Hemoglobin 23.8 pg (27.0-31.0); Mean Corpuscular Volume 80.8 fL (78.0-98.0); Platelet Count 442 10x3/uL (130-400); Red Blood Cell (RBC) Count 6.34 mill/uL (4.20-5.40)
[2024-01-10 14:57] LABS: ALT (SGPT) 7 U/L (8-55); AST (SGOT) 17 U/L (5-34); Albumin 3.3 g/dL (3.4-4.8); Alkaline Phosphatase 144 U/L (40-110); Anion Gap 15 mmol/L (10-20); BUN (Urea Nitrogen) 8 mg/dL (9.8-20.1); Bilirubin, Total 0.9 mg/dL (0.2-1.2); Calc. Creatinine Clearance 0 mL/min (70-130); Calcium 9.1 mg/dL (7.8-10.44); Carbon Dioxide 32 mmol/L (23-31); Chloride 93 mmol/L (98-107); Estimated GFR 47; Globulin 3.6 g/dL (2.4-3.5); Glucose 109 mg/dL (83-110); Lipase 18 U/L (8-78); Potassium 3.7 mmol/L (3.5-5.1); Protein, Total 6.9 g/dL (5.8-8.1); Sodium 136 mmol/L (136-145)
[2024-01-10 15:04] LABS: Troponin I 0.014 ng/mL (< 0.028)
== END 2024-01-10 16:29 | disposition home or self-care (01) ==
LOC: ERS 12:41
DX: J18.9 Pneumonia, unspecified organism (principal); D72.829 Elevated white blood cell count, unspecified; I50.9 Heart failure, unspecified; Z95.0 Presence of cardiac pacemaker
CPT/HCPCS: 71045; 71275; 80053; 83605; 83690; 83880; 84484; 85025; 87040; 93005; Q9967; 36415

== ENCOUNTER 2024-03-01 13:58 | Outpatient (CLI) | payer MEDICARE ==
[2024-03-01 15:12] LABS: #Basophils 0.26 10x3/uL (0.0-0.2); %Basophils 1.4 % (0.0-1.0); %Eosinophils 5.7 % (0.0-10.0); %Lymphocytes 14.2 % (21.0-51.0); %Monocytes 2.9 % (0.0-10.0); Hematocrit 41.2 % (36.0-47.0); Hemoglobin 12.8 g/dL (12.0-16.0); Mean Corpuscular HGB CONC 31.1 g/dL (32.0-36.0); Mean Corpuscular Hemoglobin 24.5 pg (27.0-31.0); Mean Corpuscular Volume 78.8 fL (78.0-98.0); Mean Platelet Volume 10.3 fL (7.4-10.4); Platelet Count 570 10x3/uL (130-400); RBC Distribution Width 20.7 % (11.5-14.5); Red Blood Cell (RBC) Count 5.23 mill/uL (4.20-5.40)
[2024-03-01 15:24] LABS: Anion Gap 13 mmol/L (10-20); BUN (Urea Nitrogen) 15 mg/dL (9.8-20.1); Calc. Creatinine Clearance 0 mL/min (70-130); Carbon Dioxide 27 mmol/L (23-31); Chloride 101 mmol/L (98-107); Estimated GFR 39; Glucose 120 mg/dL (83-110); Potassium 4.4 mmol/L (3.5-5.1); Sodium 137 mmol/L (136-145)
[2024-03-01 15:26] LABS: INR-International Normal Ratio 1.4; PTT 35.9 sec (22.9-36.1); Prothrombin Time 17.5 sec (12.0-14.7)
== END 2024-03-01 13:59 | disposition home or self-care (01) ==
LOC: LABBT 13:58
PROVIDERS: ATTEND Internal Medicine Cardiovascular Disease
DX: Z01.812 Encounter for preprocedural laboratory examination (principal); I48.0 Paroxysmal atrial fibrillation
CPT/HCPCS: 80048; 85025; 85610; 85730

== ENCOUNTER 2024-03-04 06:05 | Day surgery (SDC) | payer MEDICARE ==
[2024-03-01 14:27] VITALS: BMI 22.7
[2024-03-04] MEDS ORDERED: Heparin 10,000 UNITS/ 10 ML VIAL ONE (07:31)
[2024-03-04] MEDS ORDERED: Protamine Sulfate 50 MG/5 ML VIAL ONE ×2 (07:31→10:47)
[2024-03-04] MEDS ORDERED: Heparin 25,000 units/D5W 500 ML ONE (07:31)
[2024-03-04] MEDS ORDERED: fentaNYL 50 mcg/mL 1 mL Vial ONE (08:00)
[2024-03-04] MEDS ORDERED: Rocuronium Bromide 10 MG/ML (10ML VIAL) ONE ×2 (08:00→10:32)
[2024-03-04] MEDS ORDERED: ePHEDrine Sulfate 50 MG/10 ML VIAL ONE (08:00)
[2024-03-04] MEDS ORDERED: Ondansetron PF 4 MG/2 ML Vial ONE (08:00)
[2024-03-04] MEDS ORDERED: Dexamethasone 20 MG/5 ML VIAL ONE (08:00)
[2024-03-04] MEDS ORDERED: PROPOFOL 20 ML ONE (08:01)
[2024-03-04] MEDS ORDERED: PHENYLEPHRINE-NS 100 MCG/ML 10 ML SYRINGE ONE (08:01)
[2024-03-04] MEDS ORDERED: Lidocaine 1% (PF) 30 ML VIAL ONE (08:01)
[2024-03-04] MEDS ORDERED: Glycopyrrolate 0.2 MG/ML 5 ML SYRINGE ONE (08:01)
[2024-03-04] MEDS ORDERED: Etomidate 40 MG (20 mL) VIAL ONE (08:05)
[2024-03-04] MEDS ORDERED: Isoproterenol 0.2 MG/1 ML AMP ONE (09:45)
[2024-03-04] MEDS ORDERED: SUGAMMADEX SODIUM 200 MG/2 ML VIAL ONE (10:55)
[2024-03-04] MEDS ORDERED: Furosemide 20 MG (2 mL) VIAL ONE (12:25)
== END 2024-03-04 15:18 | disposition home or self-care (01) ==
LOC: SDC 06:05
PROVIDERS: ATTEND Internal Medicine Cardiovascular Disease
PROC: 4A023FZ Measurement of Cardiac Rhythm, Percutaneous Approach (ICD-10-PCS; principal; 2024-03-04)
DX: I48.0 Paroxysmal atrial fibrillation (principal); I31.39 Other pericardial effusion (noninflammatory); I42.8 Other cardiomyopathies; I13.0 Hypertensive heart and chronic kidney disease with heart failure and stage 1 through stage 4 chronic kidney disease, or unspecified chronic kidney disease; I50.22 Chronic systolic (congestive) heart failure; N18.9 Chronic kidney disease, unspecified; E03.9 Hypothyroidism, unspecified; K21.9 Gastro-esophageal reflux disease without esophagitis; Z95.818 Presence of other cardiac implants and grafts; Z95.810 Presence of automatic (implantable) cardiac defibrillator; Z96.659 Presence of unspecified artificial knee joint; Z86.16 Personal history of COVID-19; Z90.49 Acquired absence of other specified parts of digestive tract; Z90.89 Acquired absence of other organs; Z98.890 Other specified postprocedural states; Z79.890 Hormone replacement therapy; Z79.01 Long term (current) use of anticoagulants; Z79.899 Other long term (current) drug therapy
CPT/HCPCS: 85347 ×2; 93005; 93623; 93656; 93657; C1730; C1732; C1733; C1759; C1760 ×2; C1766; C1769; C1894 ×2; J1100; J1644 ×2; J1940; J2405; J2704; J2720; J3010; 93010

== ENCOUNTER 2025-01-15 10:29 | Emergency (ER) | payer MEDICARE ==
[2025-01-15] MEDS ORDERED: Ondansetron PF 4 MG/2 ML Vial ONE (10:49)
[2025-01-15 12:06] LABS: Hematocrit 37.5 % (36.0-47.0); Hemoglobin 10.7 g/dL (12.0-16.0); Mean Corpuscular Hemoglobin 19.9 pg (27.0-31.0); Mean Corpuscular Volume 69.8 fL (78.0-98.0); Platelet Count 594 10x3/uL (130-400); Red Blood Cell (RBC) Count 5.37 mill/uL (4.20-5.40); White Blood Cell (WBC) Count 24.26 10x3/uL (4.8-10.8)
[2025-01-15 12:29] LABS: ALT (SGPT) Less than 7 U/L (Less than 34); AST (SGOT) 19 U/L (11-34); Albumin 3.2 g/dL (3.1-4.5); Alkaline Phosphatase 94 U/L (40-110); Anion Gap 14 mmol/L (10-20); BUN (Urea Nitrogen) 13 mg/dL (9.8-20.1); Bilirubin, Total 0.5 mg/dL (0.3-1.2); Calc. Creatinine Clearance 0 mL/min (70-130); Calcium 8.8 mg/dL (7.8-10.44); Carbon Dioxide 25 mmol/L (23-31); Chloride 106 mmol/L (98-107); Globulin 3.4 g/dL (2.4-3.5); Glucose 91 mg/dL (83-110); Potassium 4.2 mmol/L (3.5-5.1); Sodium 141 mmol/L (136-145)
[2025-01-15 12:45] LABS: Anisocytosis MODERATE=16-30 cells HPF (0-5); Macrocytosis SLIGHT = 6-15 cells HPF (0-5); Microcytosis SLIGHT = 6-15 cells HPF (0-5); Ovalocytes SLIGHT = 2-5 cells HPF (0-1); Platelet Adequacy Comment Platelets Increased; Polychromasia SLIGHT = 2-3 cells HPF (0-2); Schistocytes SLIGHT = 2-5 cells HPF (0-1); Smudge Cells 11.0 %; Stomatocytes SLIGHT = 2-5 cells HPF (0-1); Target Cells SLIGHT = 2-5 cells HPF (0-1)
[2025-01-15 14:35] LABS: Bacteria/HPF None Seen HPF (None Seen); CAUTI Indications for Culture Dysuria,urgency,freq; Glucose, Urine (Dipstick) Normal (Negative); Leukocyte Negative Leu/uL (Negative); Protein, Urine (Dipstick) 20 mg/dL (Neg-Trace); RBC/HPF 0-3 HPF (0-3); Specific Gravity, Urine 1.022 (1.002-1.036); WBC/HPF 0-3 HPF (0-3)
[2025-01-15 14:38] LABS: Urine Culture Reflex No No
== END 2025-01-15 15:10 | disposition home or self-care (01) ==
LOC: ERS 10:29
DX: E86.0 Dehydration (principal); I48.91 Unspecified atrial fibrillation; I50.9 Heart failure, unspecified; E03.9 Hypothyroidism, unspecified; Z79.890 Hormone replacement therapy; Z79.82 Long term (current) use of aspirin; Z79.899 Other long term (current) drug therapy
CPT/HCPCS: 36415; 51701; 71045; 80053; 81001; 84484; 85025; 87040; 87086; 93005; 96361; 96374